=== PATIENT | female | born 2000 | race Caucasian/White ===

== ENCOUNTER 2019-09-24 17:12 | Emergency (ER) | payer BC, SELFPAY ==
[2018-08-04 15:13] VITALS: BMI 20.6
[2019-09-24 17:13] VITALS: BP 130/71; PULSE 231; RESP 147; TEMP 36.8; O2SAT 99; BMI 22.4
--- NOTE | 2019-09-24 17:19 | EKG12_ITS ---
Test Reason : SVT Blood Pressure : / mmHG Vent. Rate : 138 BPM Atrial Rate : 138 BPM P-R Int : 136 ms QRS Dur : 076 ms QT Int : 268 ms P-R-T Axes : 073 076 034 degrees QTc Int : 406 ms Sinus tachycardia Nonspecific ST abnormality Abnormal ECG Confirmed by ROSEANNE ALEXIS, BETTE ([id number]), writer editor OSVALDO WADE ([id number]) on 09/26/2019 3:45:13 PM Referred By: PATRICIA Confirmed By:BETTE CRONIN MD
--- NOTE | 2019-09-24 17:24 | ED.DCSUM_ITS ---
History of Present Illness Chief Complaint: Palpitations Informant: Patient, Family Narrative: 19-year-old female presenting with SVT. She states she had a history of this a few weeks ago when she was doing a tele-visit with her physician. Only lasted a few seconds. He stated that if it happened again she should come to the ER. She states he has been otherwise healthy she has been working out a lot. She does not feel like she is dehydrated she feels very well. Today she was at the gym and her heart rate started going to fast. She checked it and noted it to be over 200. She is not having any chest pain. She is not short of breath. Patient's only medication is oral control. No history of DVT/PE. Prior similar symptoms: Yes Past Medical History - Allergies and Home Meds Allergies/Adverse Reactions: Allergies penicillin G procaine Allergy (Mild, Verified 08/04/18 14:56) Nausea/Vom/Diarrhea GUARDISIL Adverse Reaction (Uncoded 09/24/19 17:15) PT UNSURE OF REACTION Primary Care Physician: Steven Toney MD [Primary Care Provider] - Prior records reviewed: Yes Past Medical History: - - SVT Lives: With Family Smoking Status: Never smoker Alcohol: None Drugs: None Review of Systems General: Denies: Chills, Fever Eyes: Denies: Visual changes - bilaterally, Diplopia ENT: Denies: Rhinorrhea, Sore throat Cardiovascular: Reports: Palpitations, Heart racing. Denies: Chest pain Respiratory: Denies: Dyspnea, Cough, Sputum Gastrointestinal: Denies: Abdominal pain Genitourinary: Denies: Dysuria Musculoskeletal: Denies: Myalgias, Arthralgias Skin: Denies: Rash Neurological: Denies: Headache Psych: Denies: Depression, Anxiety Physical Exam Vital Signs/Narrative: Vital Signs Temp Pulse Resp BP Pulse Ox 09/24/19 17:13 98.2 F 231 H 147 H 130/71 H 99 General: Well nourished, Well developed, No Acute Distress Head: Normocephalic, Atraumatic Eyes: Perrl, EOMI ENT: Moist mucous membranes, No rhinorrhea Neck: Supple, Nontender, No lymphadenopathy Cardiovascular: Tachycardia Respiratory: No distress, CTA bilaterally, Chest nontender Abdomen: Soft, Nontender Extremities: Nontender, No edema, Tenderness. Negative for: Edema, Calf Tenderness Skin: Normal color. Negative for: Cyanosis, Diaphoresis Neurological: Alert, Oriented x3 Psychological: Normal affect Diagnostic/Tx/Re-eval Chest X-Ray - ED: 1 View - Rhythm Strip Rate: 222 - SVT - EKG Follow-up EKG Interpretation: Sinus Tachycardia - Medical Decision Making Patient presented with SVT. I was able to do vagal maneuvers and her heart rate was then in the 130s. Her lab work is all normal. Troponin is negative. We did discuss whether we should do a d-dimer versus a CT of the chest given that she is on control. They did want to do a CTA. I did speak with her primary care provider regarding this and he was in agreement with this. We did perform a CTA which was negative. Her heart rate still remained between 115 and 120. As discussed with her primary care physician will start her on a low-dose of short acting metoprolol twice a day. She is going to follow-up with him Thursday and he will get her cardiology appointment. I did retirement plan counselor her that her blood pressure is normal at baseline so she starts to feel lightheaded that she should probably half her dose of metoprolol versus stopping it. If she has any concerns she should return immediately to the emergency room. Patient is stable for discharge at this time. ED Disposition - Plan for ED Patient: Disposition: Home or Assisted Living Diagnosis: SVT (supraventricular tachycardia) Instructions: ED Tachycardia PAT Prescriptions: Metoprolol Tartrate [Lopressor (beta sara)] 12.5 mg PO BID #30 tab Prescription Printed Referrals: Steven Toney MD [Primary Care Provider] -
--- NOTE | 2019-09-24 17:24 | EKG12_ITS ---
Test Reason : SVT Blood Pressure : / mmHG Vent. Rate : 222 BPM Atrial Rate : 250 BPM P-R Int : 000 ms QRS Dur : 100 ms QT Int : 200 ms P-R-T Axes : 000 065 -15 degrees QTc Int : 384 ms Supraventricular tachycardia Nonspecific ST abnormality Abnormal QRS-T angle, consider primary T wave abnormality Abnormal ECG Confirmed by ROSEANNE ALEXIS, BETTE ([id number]), manager editorial ERASMO ETIENNE ([id number]) on 09/26/2019 1:11:11 PM Referred By: PATRICIA Confirmed By:BETTE CRONIN MD
[2019-09-24 17:28] VITALS: BP 122/81; PULSE 124; RESP 23; O2SAT 99
[2019-09-24] MEDS: Aspirin 81 MG TAB.CHEW 324 MG PO (17:31)
[2019-09-24] MEDS: 0.9% Normal Saline 1,000 ML 1000 ML IV (17:33)
--- NOTE | 2019-09-24 17:37 | RAD_ITS ---
STUDY: X-RAY CHEST REASON FOR EXAM: Female, 19 years old. Patient felt as if heart was racing while working out. History of Supraventricular tachycardia episode prior. TECHNIQUE: AP portable COMPARISON: None. FINDINGS: The lungs are clear and expanded. There is no demonstrated pleural abnormality. Normal size heart. Normal mediastinum and varsha. Normal visualized pulmonary arteries. Normal visualized aortic arch and descending thoracic aorta. Normal visualized thoracic spine. Normal visualized ribs, clavicles, and shoulders. There is no demonstrated abnormality of the visualized soft tissue structures of the upper abdomen. RAD/Chest 1 View (Portable) IMPRESSION: Normal x-ray examination of the chest. Electronically Signed: Sharath Lang MD at 17:56 EDT , Service support ,
[2019-09-24 17:47] LABS: Absolute Lymphocyte Count 2.59 X10^3/uL (0.83-4.51); Absolute Neutrophil Count 4.8 X10^3/uL (2.0-7.7); Basophil# 0.05 X10^3/uL; Basophil% 0.6 % (0-1); Eosinophil# 0.11 X10^3/uL; Eosinophils% 1.3 % (0-5); Hematocrit 38.5 % (37-47); Hemoglobin 12.4 g/dL (12.0-15.0); Lymphocyte # 2.59 X10^3/ul (4.0); Mean Corp Hgb Conc 32.2 g/dL (32-36); Mean Corpuscular Hgb 28.8 pg (27.0-32.0); Mean Corpuscular Volume 89.3 fL (81-99); Mean Platelet Vol. 11.9 fl (6.2-12.0); Monocyte# 0.74 X10^3/uL; Monocyte% 8.9 % (0-10); NRBC Flagged by Analyzer 0 % (0-5); Neutrophil # 4.84 X10^3/uL (2.7-7.7); Platelet Count 225 K/mm3 (150-450); RBC Distribution Width CV 12.4 % (11.6-14.6); RBC Distribution Width SD 40.4 fl (35.1-43.9); Red Blood Count 4.31 M/mm3 (4.2-5.4); White Blood Count 8.4 K/mm3 (4.4-11.0)
[2019-09-24 17:53] LABS: Anion Gap 10 (5-15); BUN 10 mg/dL (7-18); BUN/Creat Ratio 11.8 RATIO (10-20); Calcium,Total 9.2 mg/dL (8.5-10.1); Chloride 104 mmol/L (98-107); Creatinine, Serum 0.85 mg/dL (0.55-1.02); EST Glomerular Filtration Rate 91 mL/min (>60); Est Glom Filt Rate - Afr Amer 110 mL/min (>60); Glucose 125 mg/dL (74-106); Magnesium 2.3 mg/dL (1.6-2.6); Potassium 3.4 mmol/L (3.5-5.1); Sodium Level 139 mmol/L (136-145)
[2019-09-24 18:49] VITALS: BP 121/88; PULSE 142; RESP 19; O2SAT 97
[2019-09-24 19:02] VITALS: BP 117/84; PULSE 134; RESP 16; O2SAT 98
--- NOTE | 2019-09-24 19:09 | CT_ITS ---
STUDY: CTA CHEST REASON FOR EXAM: Female, 19 years old. TACHYCARDIA RADIATION DOSAGE (If Supplied By Facility): CTDIvol = ( 4.095 ) mGy, DLP = ( 121.20 ) mGycm TECHNIQUE: The examination was performed with the intravenous administration of IV 100mL Isovue-370. Post-processing of the angiographic images was performed, with multiplanar reformation and 3D reconstruction. Individualized dose optimization techniques were used for this CT. COMPARISON: Chest radiograph September 24, 2019 FINDINGS: Normal enhancement of the main pulmonary artery and right and left pulmonary arteries. The interlobar, segmental, proximal and mid subsegmental vessels are well-opacified and there is no evidence for intraluminal clot. The more distal subsegmental vessels demonstrate linear filling defects due to motion artifact.. If strong clinical suspicion for pulmonary emboli recommend correlation with ventilation/perfusion scan of the lungs and Doppler sonogram of the venous system of lower extremities Normal thoracic aorta and visualized great vessels. There is no demonstrated aortic dissection. Normal heart and pericardium. Normal mediastinum. Normal hilar regions. Normal visualized trachea and bronchi. The lungs are well expanded. Normal pulmonary parenchyma. Normal pleura. Normal chest wall structures. Normal osseous structures. Normal visualized upper abdomen. CT/CTA Chest W/WO Contrast IMPRESSION: Normal CTA chest examination, . No definitive evidence for pulmonary embolus although there is limited study of the distal subsegmental vessels due to motion related artifact. If strong clinical suspicion for pulmonary embolus Doppler sonogram of the deep venous system of lower extremities and radionuclide perfusion ventilation scan of the lungs would be helpful for further assessment Electronically Signed: Sharath Lang MD at 20:37 EDT , Service support ,
[2019-09-24 20:00] VITALS: BP 120/87; PULSE 124; RESP 20; O2SAT 98
[2019-09-24] MEDS: Metoprolol Tartrate 25 MG Tablet 12.5 MG PO (21:21)
[2019-09-24 21:26] VITALS: BP 101/70; PULSE 128; RESP 18; O2SAT 98
== END 2019-09-24 21:26 | disposition home or self-care (01) ==
PROVIDERS: Emergency Provider Student in an Organized Health Care Education/Training Program; PCP Pediatrics
DX: I47.1 Supraventricular tachycardia (principal)
CPT/HCPCS: 71045; 71275; 80048; 83735; 84484; 85025; 93005; 96360; 99284; J7030; Q9967; A4216; J0153

== ENCOUNTER → 2019-11-02 | Outpatient (CLI) | payer BC, SELFPAY ==
[2019-11-02 15:06] VITALS: BMI 22.4
[2019-11-05 03:07] LABS: Chlamydia By Nucleic Acid AMP Negative (Negative)
[2019-11-05 07:31] LABS: Gonococcus By Nucleic Acid AMP Negative (Negative)
== END | disposition home or self-care (01) ==
LOC: LABSPEC 17:11
PROVIDERS: PCP Pediatrics; Referring Provider Nurse Practitioner Women's Health; Visit Provider Nurse Practitioner Women's Health
DX: Z11.3 Encounter for screening for infections with a predominantly sexual mode of transmission (principal)
CPT/HCPCS: 87491; 87591

== ENCOUNTER 2020-06-15 16:35 | Outpatient (RCR) | payer BC, SELFPAY ==
[2019-11-02 15:06] VITALS: BMI 22.4
== END 2020-08-21 23:59 ==
LOC: IMMUN 16:35
PROVIDERS: PCP Pediatrics; Visit Provider Family Medicine
DX: Z23 Encounter for immunization (principal)
CPT/HCPCS: 0001A; 0002A; 91300

== ENCOUNTER → 2020-12-05 11:24 | Outpatient (CLI) | payer BC, SELFPAY ==
[2020-12-07 22:05] LABS: HPV Reflexed? NOT INDICATED
== END ==
PROVIDERS: PCP Pediatrics; Referring Provider Obstetrics & Gynecology; Visit Provider Obstetrics & Gynecology
DX: Z12.4 Encounter for screening for malignant neoplasm of cervix (principal)
CPT/HCPCS: 88175; G0145

== ENCOUNTER → 2021-12-09 | Outpatient (CLI) | payer BC, SELFPAY ==
[2021-12-10 22:07] LABS: Chlamydia By Nucleic Acid AMP Negative (Negative)
[2021-12-11 09:31] LABS: Gonococcus By Nucleic Acid AMP Negative (Negative)
== END | disposition home or self-care (01) ==
LOC: LABSPEC 12-10 06:42
PROVIDERS: PCP Pediatrics; Visit Provider Obstetrics & Gynecology
DX: Z11.3 Encounter for screening for infections with a predominantly sexual mode of transmission (principal)
CPT/HCPCS: 87491; 87591

== ENCOUNTER → 2021-12-13 | Outpatient (CLI) | payer BC, SELFPAY ==
--- NOTE | 2021-12-13 18:25 | US_ITS ---
EXAM: US PELVIS TRANSABDOMINAL, COMPLETE CLINICAL INDICATION: MENORRHAGIA - FOR IUD PLACEMENT TECHNIQUE: Transabdominal pelvic ultrasound was performed with grayscale and color Doppler imaging. This report was created using [employer] report [employer] technology. COMPARISON: None. FINDINGS: UTERUS/CERVIX: The uterus measures 8.9 x 3.5 x 4.9 cm. The endometrium measures 7 mm. Anteverted. There is no uterine mass. RIGHT OVARY: The right ovary measures 2.3 x 1.5 x 1.4 cm. Blood flow is present in the right ovary. LEFT OVARY: The left ovary measures 2.6 x 1.5 x 1.9 cm. Blood flow is present in the left ovary. FREE FLUID: None. BLADDER: Unremarkable as visualized. Wall is normal thickness for degree of distention. US/Pelvic (Non ) IMPRESSION: No acute findings in the pelvis. Electronically Signed: Nikita Mota MD at 11:18 EDT ,
--- NOTE | 2021-12-13 18:26 | US_ITS ---
EXAM: US PELVIS TRANSABDOMINAL, COMPLETE CLINICAL INDICATION: MENORRHAGIA - FOR IUD PLACEMENT TECHNIQUE: Transabdominal pelvic ultrasound was performed with grayscale and color Doppler imaging. This report was created using [employer] report [employer] technology. COMPARISON: None. FINDINGS: UTERUS/CERVIX: The uterus measures 8.9 x 3.5 x 4.9 cm. The endometrium measures 7 mm. Anteverted. There is no uterine mass. RIGHT OVARY: The right ovary measures 2.3 x 1.5 x 1.4 cm. Blood flow is present in the right ovary. LEFT OVARY: The left ovary measures 2.6 x 1.5 x 1.9 cm. Blood flow is present in the left ovary. FREE FLUID: None. BLADDER: Unremarkable as visualized. Wall is normal thickness for degree of distention. US/Transvaginal Non- IMPRESSION: No acute findings in the pelvis. Electronically Signed: Nikita Mota MD at 11:18 EDT ,
== END | disposition home or self-care (01) ==
LOC: US 18:26
PROVIDERS: PCP Pediatrics; Referring Provider Obstetrics & Gynecology; Visit Provider Obstetrics & Gynecology
DX: N92.0 Excessive and frequent menstruation with regular cycle (principal)
CPT/HCPCS: 76830; 76856

== ENCOUNTER → 2024-03-04 | Outpatient (CLI) | payer OTHER, SELFPAY ==
[2024-03-14 09:49] LABS: HPV Reflexed? NOT INDICATED
== END | disposition home or self-care (01) ==
LOC: LABSPEC 09:55
PROVIDERS: PCP Pediatrics; Referring Provider Obstetrics & Gynecology; Visit Provider Obstetrics & Gynecology
DX: Z12.4 Encounter for screening for malignant neoplasm of cervix (principal)
CPT/HCPCS: 88175; G0145

== ENCOUNTER → 2025-03-08 | Outpatient (CLI) | payer OTHER, SELFPAY ==
--- OUTSIDE RECORDS SUMMARY | 2025-03-08 09:40 | XMS RPT_ITS | CCD ---
Author Organization [facility] Care Team Providers Care Voice Over Artist Name Role Phone [place] STORAGE BATTERY TESTER, Nai S Unavailable Feng ALEXIS, Maricel Wing Primary Care Provider Maricel Gonzalez MD Primary Care Provider Dr. Maricel Gonzalez Primary Care Provider Dr. Maricel Gonzalez Referring Provider Dr. Lakeisha Keane Attending Provider Maricel Gonzalez MD Primary Care Provider MARICEL GONZALEZ Primary Care Unavailable SILVESTRE SINGH Attending Unavailable Maricel Gonzalez MD Primary Care Provider Lakeisha Keane Attending UnavailMaricel Guerrero Referring Unavailable Maricel Gonzalez Primary Care Unavailable Maricel Gonzalez Primary Care Unavailable Lakeisha Keane Referring UnavailLakeisha Ramirez Attending Unavailabl e Aurora Roberts DO Primary Care Provider Fenohr PACKAGING SPECIALIST.GUEST SERVICES OFFICER, Breanne Unavailable [phone] AURORA ROBERTS Attending Unavailable SELF Referring Unavailable AURORA ROBERTS Referring Unavailable AURORA ROBERTS Primary Care Unavailable Fenohr PACKAGING SPECIALIST.GUEST SERVICES OFFICER, Breanne Unavailable Allergies Allergy Classification Reported Allergen(s) Allergy Type Date of Onset Reaction(s) Facility (15 sources) L1 protein, Human papillomavirus type 11 Vaccine / L1 protein, Human papillomavirus type 16 Vaccine / L1 protein, Human papillomavirus type 18 Vaccine / L1 protein, Human papillomavirus type 31 Vaccine / L1 protein, Human papillomavirus type 33 Vaccine / L1 protein, Human papillomavirus type 45 Vaccine / L1 protein, Human papillomavirus type 52 Vaccine / L1 protein, Human papillomavirus type 58 Vaccine / L1 protein, Human papillomavirus type 6 Vaccine; Translations: [HUMAN PAPILLOMAV VAC,9-DEMETRIO(PF)] Drug Allergy 11-11-[address] [facility] (1 source) Penicillin G Drug Allergy 12-10-19 22 Nausea/Vom/Josette rrhea [facility] Work Phone: (1 source) GUARDISIL Propensity to adverse reactions 12-06-19 21 PT UNSURE OF REACTION [facility] Work Phone: (6 sources) Penicillins; Translations: [PENICILLINS] Drug Allergy 09-11-[address] [facility] (1 source) Penicillin Drug Allergy 03-04-20 24 [facility] Repository (1 source) human papillomavirus vaccine, quadr Drug allergy (disorder) 03-04-20 24 [facility] Repository (2 sources) Penicillins Drug Allergy 09-11-[address] [facility] Medications Current Medications Medication Drug Class(es) Dates Sig (Normalized) Sig (Original) clindamycin 10 mg/ml topical lotion (2 sources) Lincosamide Antibacterial Start: 10-01-2022 Clindamycin Phosphate (CLEOCIN T) 1 % lotion PLEASE SEE ATTACHED FOR DETAILED DIRECTIONS 10/01/2022 Active doxycycline hyclate 100 mg oral capsule (1 source) Tetracycline-class Drug Start: 09-10-2022 End: 09-20-2022 take 1 capsule by mouth twice daily doxycycline hyclate (VIBRAMYCIN) 100 mg capsule Take 1 capsule by mouth twice daily for 10 days. 20 capsule 0 09/10/2022 09/20/2022 Active Comment on above: Take 1 capsule by [facility] twice daily for 10 days. Drospirenone-Ethin yl Estradiol (20 sources) Progestin, Estrogen Start: 12-16-2021 Drospirenone-Ethi nyl Estradiol (Ocella) 3-0.03 mg tablet Active 1 TABLET PO .COMPLEX December 16, 2021 9:02am 1 tab PO active pills for continuous cycling; Start: 12-05-2020 End: 12-16-2021 Drospirenone-Ethinyl Estradi ol (Ocella) 3-0.03 mg tablet Discontinued 1 TABLET PO .COMPLEX December 05, 2020 9:42am December 16, 2021 9:02am 1 tab PO active pills for continuous cycling; Start: 11-13-2020 End: 12-05-2020 Drospirenone-Ethinyl Estradi ol (Ocella) 3-0.03 mg tablet Discontinued 1 TABLET PO .COMPLEX 84 November 13, 2020 8:40am December 05, 2020 9:42am 1 tab PO active pills for continuous cycling; Start: 08-16-2019 End: 11-13-2020 Drospirenone-Ethinyl Estradi ol (Ocella) 3-0.03 mg tablet Discontinued 1 TABLET PO .COMPLEX 84 November 02, 2019 3:06pm November 13, 2020 8:40am 1 tab PO active pills for continuous cycling; Start: 08-04-2018 End: 08-16-2019 Drospirenone-Ethinyl Estradi ol (Ocella) 3-0.03 mg tablet Discontinued 1 TABLET PO .COMPLEX August 04, 2018 3:13pm August 16, 2019 11:30am 1 tab PO active pills for continuous cycling; Start: 12-22-2017 End: 08-04-2018 Drospirenone-Ethinyl Estradi ol (Ocella) 3-0.03 mg tablet Discontinued 1 TABLET PO .COMPLEX December 22, 2017 12:00am August 04, 2018 3:13pm 1 tab PO active pills for continuous cycling; Start: 06-29-2017 End: 12-22-2017 Drospirenone-Ethinyl Estradi ol (Misael (28)) 3-0.02 mg tablet Discontinued 1 TABLET PO .COMPLEX June 29, 2017 1:30pm December 22, 2017 2:50pm 1 tab PO daily continuous cycling for 3 cycles Start: 06-01-2017 End: 06-29-2017 Drospirenone-Ethinyl Estradi ol (Misael (28)) 3-0.02 mg tablet Discontinued 1 TABLET PO daily June 01, 2017 12:00am June 29, 2017 1:31pm Start: 10-20-2016 take 1 tablet by patrica th once daily MISAEL 3-0.02 MG TABS One tablet by mouth daily DROSPIRENONE-ETHINYL ESTRADIOL [id number] Nai Rangel NP Start: 05-14-2016 End: 06-22-2024 Drospirenone-Ethinyl Estradi ol (MISAEL, 28,) 3-0.02 mg per tablet Take continuous for 12 weeks 3 Package 2 05/14/2016 06/22/2024 Discontinued Start: 05-14-2016 Drospirenone-E thinyl Estradiol (MISAEL, 28,) 3-0.02 mg per tablet Take continuous for 12 weeks 3 Package 2 05/14/2016 Active Comment on above: Take continuous for 12 weeks nitrofurantoin, macrocrystals 25 mg / nitrofurantoin, monohydrate 75 mg oral capsule (1 source) Nitrofuran Antibacterial Start: End: 023 take 1 capsule by mouth twice daily nitrofurantoin monohydrate and macrocrystal (MACROBID) 100 mg capsule Indications: Dysuria Take 1 capsule by mouth twice daily for 7 days. 14 capsule 0 07/10/2022 07/17/2022 Active Comment on above: Take 1 capsule by [facility] twice daily for 7 days. spironolactone 25 mg oral tablet (2 sources) Aldosterone Antagonist Start: 024 spironolactone (ALDACTONE) 25 mg tablet 06/15/2023 Active SPIRONOLACTONE-NIACINA MIDE TOPICAL (2 sources) Start: 025 SPIRONOLACTONE-NIACIN AMIDE TOPICAL Apply a thin layer to the face twice a day 05/27/2024 Active tretinoin 0.25 mg/ml topical cream (2 sources) Retinoid Start: 023 tretinoin (RETIN-A) 0.025 % topical cream Using 0.1 10/01/2022 Active Completed/Discontinued Medications Medication Drug Class(es) Dates Sig (Normalized) Sig (Original) azelastine hydrochloride 0.5 mg/ml ophthalmic solution (12 sources) Histamine-1 Receptor Antagonist Start: 08-17-2019 End: 06-22-2024 take 1 drop(s) into the eye(s) twice daily as needed, then take 1 drop(s) into the eye(s) every twelve hours as needed Azelastine HCl (OPTIVAR) 0.05 % ophthalmic solution Indications: Other chronic allergic conjunctivitis of both eyes Use 1 Drop in both eyes twice daily as needed (Eye pruritus). ONE DROP TO THE AFFECTED EYE EVERY 12 HOURS PRN PRURITIS 1 Bottle 4 08/17/2019 06/22/2024 Discontinued Start: 08-17-2019 take 1 drop(s) into the eye(s) twice daily as needed, then take 1 drop(s) into the eye(s) every twelve hours as needed Azelastine HCl (OPTIVAR) 0.05 % ophthalmic solution Indications: Other chronic allergic conjunctivitis of both eyes Use 1 Drop in both eyes twice daily as needed (Eye pruritus). ONE DROP TO THE AFFECTED EYE EVERY 12 HOURS PRN PRURITIS 1 Bottle 4 08/17/2019 Active Comment on above: Use 1 Drop in both e yes twice daily as needed (Eye pruritus). ONE DROP TO THE AFFECTED EYE EVERY 12 HOURS PRN PRURITIS fluconazole 150 mg oral tablet (2 sources) Azole Antifungal Start: 7 FLUCONAZOLE 150 MG TABS 1 tab po today and repeat 3 days FLUCONAZOLE [id number] Nai Rangel STORAGE BATTERY TESTER metoprolol tartrate 25 mg oral tablet (1 source) beta-Adrenergic Cedrick Start: 0 End: 0 take 12.5 mg by mouth twice daily Metoprolol Tartrate Discontinued 12.5 MG PO TWICE A DAY September 24, 2019 12:00am November 02, 2019 3:00pm Problems Active Problems Problem Classification Problem Date Documented Date Episodic/Chronic Administrative/socia l admission (1 source) First encounter by subject; Translations: [Persons encountering health services in other specified circumstances] 06-22-2024 Episodic Cardiac dysrhythmias (14 sources) Supraventricular tachycardia; Translations: [Supraventricular tachycardia] Onset: 09-28-2019 12-14-2019 Chronic Cardiac dysrhythmias (4 sources) Tachycardia; Translations: [Tachycardia, unspecified] Onset: 09-10-2022 Episodic Genitourinary symptoms and ill-defined conditions (1 source) Dysuria; Translations: [Dysuria] Episodic Immunizations and screening for infectious disease (7 sources) Tuberculosis screening status; Translations: [Encounter for screening for respiratory tuberculosis] Episodic Menstrual disorders (16 sources) Menorrhagia; Translations: [Menometrorrhagia] Onset: 07-30-2015 10-20-2016 Chronic Other circulatory disease (1 source) History of supraventricular tachycardia; Translations: [Personal history of other diseases of the circulatory system] 06-22-2024 Episodic Other lower respiratory disease (1 source) Cough; Translations: [Acute cough] Episodic Other non-traumatic joint disorders (2 sources) Acute ankle pain; Translations: [Pain in right ankle and joints of right foot] 10-01-2022 Episodic Other screening for suspected conditions (not mental disorders or infectious disease) (2 sources) Encounter for screening for malignant neoplasm of cervix; Translations: [Cancer cervix screening status] Onset: 04-06-2024 06-22-2024 Episodic Other upper respiratory infections (2 sources) Acute frontal sinusitis; Translations: [Acute frontal sinusitis, unspecified] Onset: 09-10-2022 Episodic Residual codes; unclassified (1 source) Treatment not available; Translations: [Procedure and treatment not carried out for other reasons] 12-18-2022 Episodic Unclassified (1 source) Acute cough; Translations: [Acute cough] Onset: 09-10-2022 Past or Other Problems Problem Classification Problem Date Documented Da te Episodic/Chronic E Codes: Adverse effects of medical drugs (13 sources) Vaccines adverse reaction; Translations: [Adverse effect of other vaccines and biological substances, initial encounter] Onset: 10-22-2015 2021 Episodic Mycoses (2 sources) Candidiasis of vagina; Translations: [Candidiasis of vulva and vagina] Onset: 10-20-2016 10-20-2016 Episodic Other non-traumatic joint disorders (13 sources) Ankle pain; Translations: [Pain in right ankle and joints of right foot] Onset: 07-05-2012 07-05-2012 Episodic Results Test Name Value Interpretation Reference Range Facility BLOOD TB SCREENon 07-18-2024 M. tuberculosis tuberculin stim IFN-g Ql (Bld) Negative Normal [facility] Comment on above: Order Comment: Speci men Type: BLOOD SPECIMEN Ordering Facility: [facility] Address: [address] [place] [address] Performed By: #### I NFTBP #### [facility] CLIA [id number] [address] [place] [address] [place] [address] [place] MITOGEN MINUS NIL >9.98 Normal >=0.50 [facility] Comment on above: Order Comment: Speci men Type: BLOOD SPECIMEN Ordering Facility: [facility] Address: [address] [place] [address] Performed By: #### I NFTBP #### [facility] CLIA [id number] [address] [place] [address] [place] TB GAMMA INTERPRETATION Infection with M. tuberculosis complex is unlikely. If latent tuberculosis infection is highly suspected, a negative result does not rule out the infection. Specimens from immunocompromised patients and those <5 years of age may show false negative results. In case of a contact investigation, please repeat 8-12 weeks after a known exposure. Normal [facility] Comment on above: Order Comment: Jaswanti elan Type: BLOOD SPECIMEN Ordering Facility: [facility] Address: [address] [place] [address] Performed By: #### I NFTBP #### [facility] CLIA [id number] [address] [place] [address] [place] TB NIL 0.02 IU/mL Normal <=8.00 [facility] Comment on above: Order Comment: Speci men Type: BLOOD SPECIMEN Ordering Facility: [facility] Address: [address] [place] [address] Performed By: #### I NFTBP #### [facility] CLIA [id number] [address] [place] [address] [place] TB1 AG MINUS NIL 0.00 IU/mL Normal <0.35 [facility] Comment on above: Order Comment: Speci men Type: BLOOD SPECIMEN Ordering Facility: [facility] Address: [address] [place] [address] Performed By: #### I NFTBP #### [facility] CLIA [id number] [address] [place] [address] [place] TB2 AG MINUS NIL <0.00 Normal <0.35 [facility] Comment on above: Order Comment: Speci men Type: BLOOD SPECIMEN Ordering Facility: [facility] Address: [address] [place] [address] Performed By: #### I NFTBP #### [facility] CLIA [id number] [address] [place] [address] [place] CBC panel Auto (Bld)on 07-18 Erythrocyte distribution width (RBC) [Ratio] 12.2 % Normal 11.5-15.0 [facility] Comment on above: Order Comment: Speci men Type: BLOOD SPECIMEN Ordering Facility: [facility] Address: [address] [place] [address] Performed By: #### 5 8410-2 #### [facility] CLIA [id number] [address] [place] [address] [place] Hematocrit (Bld) [Volume fraction] 40.4 % Normal 36.0-46.0 [facility] Comment on above: Order Comment: Speci men Type: BLOOD SPECIMEN Ordering Facility: [facility] Address: [address] [place] [address] Performed By: #### 5 8410-2 #### [facility] CLIA [id number] [address] [place] [address] [place] Hemoglobin (Bld) [Mass/Vol] 13.8 g/dL Normal 11.5-15.5 [facility] Comment on above: Order Comment: Speci men Type: BLOOD SPECIMEN Ordering Facility: [facility] Address: [address] [place] [address] Performed By: #### 5 8410-2 #### [facility] CLIA [id number] [address] [place] [address] [place] MCH (RBC) [Entitic mass] 29.4 pg Normal 26.0-34.0 [facility] Comment on above: Order Comment: Speci men Type: BLOOD SPECIMEN Ordering Facility: [facility] Address: [address] [place] [address] Performed By: #### 5 8410-2 #### [facility] CLIA [id number] [address] [place] [address] [place] MCHC (RBC) [Mass/Vol] 34.2 g/dL Normal 30.5-36.0 [facility] Comment on above: Order Comment: Speci men Type: BLOOD SPECIMEN Ordering Facility: [facility] Address: [address] [place] [address] Performed By: #### 5 8410-2 #### [facility] CLIA [id number] [address] [place] [address] [place] MCV (RBC) [Entitic vol] 86.0 fL Normal 80.0-100.0 [facility] Comment on above: Order Comment: Speci men Type: BLOOD SPECIMEN Ordering Facility: [facility] Address: [address] [place] [address] Performed By: #### 5 8410-2 #### [facility] CLIA [id number] [address] [place] [address] [place] Nucleated RBC (Bld) [#/Vol] 10*3/uL Normal <0.01 [facility] Comment on above: Order Comment: Speci men Type: BLOOD SPECIMEN Ordering Facility: [facility] Address: [address] [place] [address] Performed By: #### 5 8410-2 #### [facility] CLIA [id number] [address] [place] [address] [place] Platelet mean volume (Bld) [Entitic vol] 11.3 fL Normal 9.0-12.7 [facility] Comment on above: Order Comment: Speci men Type: BLOOD SPECIMEN Ordering Facility: [facility] Address: [address] [place] [address] Performed By: #### 5 8410-2 #### [facility] CLIA [id number] [address] [place] [address] [place] Platelets (Bld) [#/Vol] 220 10*3/uL Normal 150-400 [facility] Comment on above: Order Comment: Speci men Type: BLOOD SPECIMEN Ordering Facility: [facility] Address: [address] [place], [place] [id number] Performed By: #### 5 8410-2 #### [facility] CLIA [id number] [address] [place] [address] [place] RBC (Bld) [#/Vol] 4.70 10*6/uL Normal 3.90-5.20 [facility] Comment on above: Order Comment: Speci men Type: BLOOD SPECIMEN Ordering Facility: [facility] Address: [address] [place] [address] Performed By: #### 5 8410-2 #### [facility] CLIA [id number] [place] [address] [place] WBC (Bld) [#/Vol] 7.56 10*3/uL Normal 3.70-11.00 [facility] Comment on above: Order Comment: Speci men Type: BLOOD SPECIMEN Ordering Facility: [facility] Address: [address] [place] [address] Performed By: #### 5 8410-2 #### [facility] CLIA [id number] [address] [place] [address] [place] Comprehensive metabolic 2000 panelon 07-18-2024 Albumin [Mass/Vol] 4.8 g/dL Normal 3.9-4.9 [facility] Comment on above: Order Comment: Speci men Type: BLOOD SPECIMEN Ordering Facility: [facility] Address: [address] [place] [address] Performed By: #### 2 4323-8 #### [facility] CLIA [id number] [address] [place] [address] [place] ALP [Catalytic activity/Vol] 61 U/L Normal 34-123 [facility] Comment on above: Order Comment: Speci men Type: BLOOD SPECIMEN Ordering Facility: [facility] Address: [address] [place] [address] Performed By: #### 2 4323-8 #### [facility] CLIA [id number] [address] [id number] [address] [place] ALT [Catalytic activity/Vol] 16 U/L Normal 7-38 [facility] Comment on above: Order Comment: Speci men Type: BLOOD SPECIMEN Ordering Facility: [facility] Address: [address] [place] [address] Performed By: #### 2 4323-8 #### [facility] CLIA [id number] [address] [place] [address] [place] Anion gap [Moles/Vol] 11 mmol/L Normal 8-15 [facility] Comment on above: Order Comment: Speci men Type: BLOOD SPECIMEN Ordering Facility: [facility] Address: [address] [place] [address] Performed By: #### 2 4323-8 #### [facility] CLIA [id number] [address] [place] [address] [place] AST [Catalytic activity/Vol] 25 U/L Normal 13-35 [facility] Comment on above: Order Comment: Speci men Type: BLOOD SPECIMEN Ordering Facility: [facility] Address: [address] [place] [address] Performed By: #### 2 4323-8 #### [facility] CLIA [id number] [address] [place] [address] [place] Bilirubin [Mass/Vol] 0.4 mg/dL Normal 0.2-1.3 [facility] Comment on above: Order Comment: Speci men Type: BLOOD SPECIMEN Ordering Facility: [facility] Address: [address] [place] [address] Performed By: #### 2 4323-8 #### [facility] CLIA [id number] [address] [place] [address] [place] Calcium [Mass/Vol] 10.1 mg/dL Normal 8.5-10.2 [facility] Comment on above: Order Comment: Speci men Type: BLOOD SPECIMEN Ordering Facility: [facility] Address: [address] [place] [address] Performed By: #### 2 4323-8 #### [facility] CLIA [id number] [address] [place] [address] [place] Chloride [Moles/Vol] 104 mmol/L Normal 98-107 [facility] Comment on above: Order Comment: Speci men Type: BLOOD SPECIMEN Ordering Facility: [facility] Address: [address] [place] [address] Performed By: #### 2 4323-8 #### [facility] CLIA [id number] [address] [place] [address] [place] CO2 [Moles/Vol] 23 mmol/L Normal 22-30 [facility] Comment on above: Order Comment: Speci men Type: BLOOD SPECIMEN Ordering Facility: [facility] Address: [address] [place] [address] Performed By: #### 2 4323-8 #### [facility] CLIA [id number] [address] [place] [address] [place] Creatinine [Mass/Vol] 0.73 mg/dL Normal 0.58-0.96 [facility] Comment on above: Order Comment: Speci men Type: BLOOD SPECIMEN Ordering Facility: [facility] Address: [address] [place] [address] Performed By: #### 2 4323-8 #### [facility] CLIA [id number] [address] [place] [address] [place] Creatinine and Glomerular filtration rate.predicted panel (S/P/Bld) 117 mL/min/1.73m??? Normal >=60 [facility] Comment on above: Order Comment: Speci men Type: BLOOD SPECIMEN Ordering Facility: [facility] Address: [address] [place] [address] Result Comment: Sandra mated Glomerular Filtration Rate (eGFR) is calculated using the 2020 CKD-EPI creatinine equation. This equation utilizes serum creatinine, sex, and age as parameters. The creatinine assay has traceable calibration to isotope dilution-mass spectrometry. Refer to KDIGO guidelines for clinical interpretation. In patients with unstable renal function, e.g. those with acute kidney injury, the eGFR may not accurately reflect actual GFR. Performed By: #### 2 4323-8 #### [facility] CLIA [id number] [address] [place], [place] [id number] [place] Glucose [Mass/Vol] 86 mg/dL Normal 74-99 [facility] Comment on above: Order Comment: Syd ansari Type: BLOOD SPECIMEN Ordering Facility: [facility] Address: [address] [place] [address] Result Comment: The [place] [employer] Association (ADA) provides guidance for cutoff values for fasting glucose and random glucose. The ADA defines fasting as no caloric intake for at least 8 hours. Fasting plasma glucose results between 100 to 125 mg/dL indicate increased risk for diabetes (prediabetes). Fasting plasma glucose results greater than or equal to 126 mg/dL meet the criteria for diagnosis of diabetes. In the absence of unequivocal hyperglycemia, results should be confirmed by repeat testing. In a patient with classic symptoms of hyperglycemia or hyperglycemic crisis, random plasma glucose results greater than or equal to 200 mg/dL meet the criteria for diagnosis of diabetes. Reference: Standards of Medical Care in Diabetes 2016, [place] [employer]. Diabetes Care. 2016.39(Suppl 1). Performed By: #### 2 4323-8 #### [facility] CLIA [id number] [address] [place], [place] [address] [place] Potassium [Moles/Vol] 4.4 mmol/L Normal 3.7-5.1 [facility] Comment on above: Order Comment: Syd ansari Type: BLOOD SPECIMEN Ordering Facility: [facility] [facility] Address: [address] [place], [place] [id number] Performed By: #### 2 4323-8 #### [facility] CLIA [id number] [address] [place] [address] [place] Protein [Mass/Vol] 7.7 g/dL Normal 6.3-8.0 [facility] Comment on above: Order Comment: Syd ansari Type: BLOOD SPECIMEN Ordering Facility: [facility] Address: [address] [place] [address] Performed By: #### 2 4323-8 #### [facility] CLIA [id number] [address] [place] [address] [place] Sodium [Moles/Vol] 138 mmol/L Normal 136-144 [facility] Comment on above: Order Comment: Speci men Type: BLOOD SPECIMEN Ordering Facility: [facility] Address: [address] [place] [address] Performed By: #### 2 4323-8 #### [facility] CLIA [id number] [address] [place] [address] [place] Urea nitrogen [Mass/Vol] 10 mg/dL Normal 7-21 [facility] Comment on above: Order Comment: Speci men Type: BLOOD SPECIMEN Ordering Facility: [facility] Address: [address] [place] [address] Performed By: #### 2 4323-8 #### [facility] CLIA [id number] [address] [place] [address] [place] HbA1c (Bld)on 07-18-2024 Average glucose Estimated from glycated hemoglobin (Bld) [Mass/Vol] 94 mg/dL Normal [facility] Comment on above: Order Comment: Speci men Type: BLOOD SPECIMEN Ordering Facility: [facility] Address: [address] [place] [address] Result Comment: eAG: (Estimated average glucose) is a calculated value from HgbA1c and is traveling representative of the average blood glucose level in the last 2-3 month period. Performed By: #### 5 5454-3 #### [facility] CLIA [id number] [address] [place] [address] [place] HbA1c (Bld) [Mass fraction] 4.9 % Normal 4.3-5.6 [facility] Comment on above: Order Comment: Speci men Type: BLOOD SPECIMEN Ordering Facility: [facility] Address: [address] [place] [address] Result Comment: Amer ican Diabetes Association guidelines indicate that patients with HgbA1c in the range 5.7-6.4% are at increased risk for development of diabetes, and intervention by lifestyle modification may be beneficial. HgbA1c greater or equal to 6.5% is considered diagnostic of diabetes. Performed By: #### 5 5454-3 #### [facility] CLIA [id number] [address] [place] [address] Lipid 1996 panelon 5 Cholesterol [Mass/Vol] 181 mg/dL Normal <200 [facility] Comment on above: Order Comment: Speci men Type: BLOOD SPECIMEN Ordering Facility: [facility] Address: [address] [place] [address] Result Comment: <200 mg/dL, Desirable 200-239 mg/dL, Borderline high >239 mg/dL, High Performed By: #### 2 4331-1 #### [facility] CLIA [id number] [address] [place] [address] LAB CLIA [id number] [place] [address] [place] Cholesterol in HDL [Mass/Vol] 65 mg/dL Normal >39 [facility] Comment on above: Order Comment: Jaswanti men Type: BLOOD SPECIMEN Ordering Facility: [facility] Address: [address] [place] [address] Result Comment: 40-5 9 mg/dL, Acceptable >59 mg/dL, High: Negative risk factor for coronary heart disease <40 mg/dL, Low: Positive risk factor for coronary heart disease Performed By: #### 2 4331-1 #### [facility] CLIA [id number] [address] [place] [address] LAB CLIA [id number] [place] [address] [place] Cholesterol in LDL [Mass/Vol] 109 mg/dL High <100 [facility] Comment on above: Order Comment: Speci men Type: BLOOD SPECIMEN Ordering Facility: [facility] Address: [address] [place] [address] Result Comment: <100 mg/dL, Optimal 100-129 mg/dL, Near optimal/above optimal 130-159 mg/dL, Borderline high 160-189 mg/dL, High >189 mg/dL, Very high Secondary prevention optimal LDL Cholesterol levels are recommended to be <70 mg/dL LDL cholesterol is calculated using the Brothers-NIH equation. Performed By: #### 2 4331-1 #### [facility] CLIA [id number] [address] [place] [address] LAB CLIA [id number] [address] [place] [address] [place] Cholesterol in LDL/Cholesterol in HDL [Mass ratio] 1.68 {ratio} Normal <2.54 [facility] Comment on above: Order Comment: Syd ansari Type: BLOOD SPECIMEN Ordering Facility: [facility] Address: [address] [place] [address] Result Comment: Refe rence: 1. National Cholesterol Education Program ATP III Guideline At-A-Glance Quick Desk Reference: National Heart, Lung, and Blood [place]. National Institutes of Health. 2001: NIH Publication No. 01-3305. 2. An International Atherosclerosis Society position paper: global recommendations for the management of dyslipidemia: executive summary, Atherosclerosis. 2014: 232(2):410-413. Performed By: #### 2 4331-1 #### [facility] CLIA [id number] [address] [place] [address] LAB CLIA [id number] [address] [place] [address] [place] Cholesterol in VLDL [Mass/Vol] 6 mg/dL Normal <30 [facility] Comment on above: Order Comment: Syd ansari Type: BLOOD SPECIMEN Ordering Facility: [facility] Address: [address] [place] [address] Performed By: #### 2 4331-1 #### [facility] CLIA [id number] [address] LAB CLIA [id number] [address] [place] [address] [place] Cholesterol non HDL [Mass/Vol] 116 mg/dL Normal <130 [facility] Comment on above: Order Comment: Speci men Type: BLOOD SPECIMEN Ordering Facility: [facility] Address: [address] [place] [address] Result Comment: <130 mg/dL, Optimal 130-159 mg/dL, Near optimal/above optimal 160-189 mg/dL, Borderline high 190-219 mg/dL, High >219 mg/dL, Very high Secondary prevention optimal non HDL Cholesterol levels are recommended to be <100 mg/dL Performed By: #### 2 4331-1 #### [facility] CLIA [id number] [address] [place] [address] LAB CLIA [id number] [address] [place] [address] [place] Cholesterol.total /Cholesterol in HDL [Mass ratio] 2.78 {ratio} Normal <5.10 [facility] Comment on above: Order Comment: Speci men Type: BLOOD SPECIMEN Ordering Facility: [facility] Address: [address] [place] [address] Performed By: #### 2 4331-1 #### [facility] CLIA [id number] [address] [place] [address] OF [facility] CLIA [id number] [address] [place] [address] [place] FASTING TIME 12 hrs Normal [facility] Comment on above: Order Comment: Speci men Type: BLOOD SPECIMEN Ordering Facility: [facility] Address: [address] [place] [address] Performed By: #### 2 4331-1 #### [facility] CLIA [id number] [address] [place] [address] OF [facility] CLIA [id number] [address] [place] [address] [place] Triglyceride [Mass/Vol] 34 mg/dL Normal <150 [facility] Comment on above: Order Comment: Speci men Type: BLOOD SPECIMEN Ordering Facility: [facility] Address: [address] [place] [address] Result Comment: <150 mg/dL, Normal 150-199 mg/dL, Borderline high 200-499 mg/dL, High >499 mg/dL, Very high Performed By: #### 2 4331-1 #### [facility] CLIA [id number] [address] [place] [address] [facility] CLIA [id number] [place] [address] CNOVon 06-22-2024 CNOV Office Visit ([facility] ) NALDOJOHAN Grant ([id number]) 2000 F Date Time Provider Department 06/22/24 11:20 AM [facility] During your visit today, we recorded the following information about you: Pulse Respiration Blood pressure Weight 150/minute 16/minute 125/70 58.1 kg Aurora Roberts DO 06/22/2024 2:01 PM Signed PRIMARY CARE OFFICE VISIT June 22, 2024 History: Johan is a 24-year-old female presenting for an initial visit to [facility]. Initial Visit: - Last seen by a ambulette driver; no PCP since. - No current health concerns. - Recent Pap smear in February 2024; no history of abnormal results. - Received two doses of Gardasil at ages 14-15; experienced severe nausea, emesis, and visual disturbances post-vaccination. - Family history of lung cancer in grandfather. - Denies tobacco or alcohol use. 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 - Asks about vitamin recommendations. SVT: - History of SVT with ablation in 2019; no recurrence since. - Denies current medication use for SVT. - Reports tachycardia during medical appointments, but normal heart rate otherwise. Acne: - Taking spironolactone for acne management. - Uses topical treatments. ROS: (No current symptoms explicitly mentioned in the transcript. No ROS items to list.) The patient consented to the use of [employer] software for draft documentation of the visit consistent with [facility]?s Notice of Privacy Practices. Physical exam: BP 125/70 Pulse (!) 150 Resp 16 Wt 58.1 kg (128 lb) LMP 07/29/2021 BMI 22.18 kg/m? General: no acute distress, conversant Eyes: conjunctivae clear Pulm: respirations are even and unlabored CV: vitals as above, extremities well perfused Abdomen: non-distended Neuro: alert, oriented, and moving all four limbs Psych: appropriate mood and affect Skin: warm and dry Assessment AND Plan: 1. Encounter to establish care (Z76.89) 2. Preventative health care (Z00.00) 3. Adult wellness visit (Z00.00) - Established care as a new patient. - Discussed the importance of regular health screenings and preventative care. - Ordered comprehensive lab work including lipid panel, CMP, CBC, and HbA1c. - Labs to be drawn in July; patient advised to fast prior to the appointment. - Ordered TB blood test to be completed after July 14 as required for school. - Discussed vitamin supplementation; advised that a multivitamin is generally safe and excess will be excreted by the body. - Patient to schedule a follow-up visit in one year. 4. Personal history of supraventricular tachycardia (Z86.79) - History of SVT with successful ablation in 2019; no recurrence since the procedure. - No current medications for SVT. - Tachycardia noted during the visit, likely due to situational anxiety; patient reports normal heart rate outside of clinical settings. - Continue current management; no further intervention required at this time. 5. Screening for cervical cancer (Z12.4) - Recent Pap smear performed in February 2024 with normal results. - Discussed HPV vaccination history; patient received two doses of Gardasil but experienced significant adverse reactions. - Advised that two doses are generally sufficient, especially given the adverse reaction to the third dose. - Next Pap smear due in February 2027. Aurora Roberts DO Internal Medicine Medical Billing Statement [id number] This visit should be coded by complexity; MDM was of low complexity. OVERALL COMPLEXITY Problem Complexity: Low Data Level: Low Risk Level: Straightforward Overall MDM complexity (2/3 must be met or exceeded): Low PROBLEMS SECTION: 1. Personal history of supraventricular tachycardia - Stable, Chronic Illness One stable chronic illness (Low complexity) Problem complexity level: Low DATA SECTION: - Review of prior external note(s) from each unique source: - Review of the result(s) of each unique test: - Ordering of each unique test: lipid panel; CMP; CBC; HbA1c; TB blood test - 5 unique tests ordered - Assessment requiring an independent historian(s): - Independent interpretation of a test performed by another physician/other qualified health post acute care registered nurse: - Discussion of management or test interpretation with external physician/other qualified health post acute care registered nurse/appropriate source: Data complexity level: Limited; meets the requirements of at least 1 out of 2 categories RISKS SECTION: Comprehensive lab work (lipid panel, CMP, CBC, HbA1c, TB blood test) - Minimal complexity Vitamin supplementation (multivitamin) - Minimal complexity Risks complexity level (highest from above): Minimal 06/22/2024 Referring Provider: SELF (more content not included)... Normal [facility] PAP I-G w/rfx hrHPV-Aptimaon 03-14-2024 ADEQ Comment Normal . [facility] Comment on above: Order Comment: Syd ansari Comment: [id number] Specimen Comment: No. of containers..01 ThinPrep Vial Result Comment: Sati sfactory for evaluation. No endocervical component is identified. Performed By: #### L 7400.0353 #### [facility] [address] [place], [place], [id number] COMM . Normal . [facility] Comment on above: Order Comment: Syd ansari Comment: [id number] Specimen Comment: No. of containers..01 ThinPrep Vial Performed By: #### L 7400.0353 #### [facility] [address] [place], [address] COMMENT Comment Normal . [facility] Comment on above: Order Comment: Speci men Comment: [id number] Specimen Comment: No. of containers..01 ThinPrep Vial Result Comment: This liquid based ThinPrep(R) pap test was screened with the use of an image guided system. Performed By: #### L 7400.0353 #### [facility] [address] [place], [address] DIAG Comment Normal . [facility] Comment on above: Order Comment: Speci men Comment: [id number] Specimen Comment: No. of containers..01 ThinPrep Vial Result Comment: NEGA TIVE FOR INTRAEPITHELIAL LESION OR MALIGNANCY. Performed By: #### L 7400.0353 #### [facility] [address] [place], [address] HPV RFLX Comment Normal . [facility] Comment on above: Order Comment: Speci men Comment: [id number] Specimen Comment: No. of containers..01 ThinPrep Vial Result Comment: The HPV DNA reflex criteria were not met with this specimen result therefore, no HPV testing was performed. Performed at: [address] [id number] Manufacturing Controller: Jazmyn Corrales MD, Phone: [phone] Performed By: #### L 7400.0353 #### [facility] [address] [place], [address] PAPSMR Comment Normal . [facility] Comment on above: Order Comment: Speci men Comment: [id number] Specimen Comment: No. of containers..01 ThinPrep Vial Result Comment: The Pap smear is a screening test designed to aid in the detection of premalignant and malignant conditions of the uterine cervix. It is not a diagnostic procedure and should not be used as the sole means of detecting cervical cancer. Both false-positive and false-negative reports do occur. Performed By: #### L 7400.0353 #### [facility] [address] [place], [place], [address] PERFORM Comment Normal . [facility] Comment on above: Order Comment: Speci men Comment: [id number] Specimen Comment: No. of containers..01 ThinPrep Vial Result Comment: Willy Guerrero, Dual Hose Cementer (ASCP) Performed By: #### L 7400.0353 #### [facility] [address] [place], [address] State Attorney Office Visit Reporton 03-04-2024 State Attorney Office Visit Report [facility] [address], [address] [place] [address] OFFICE VISIT Date of Service: 03/04/24 MR#: [id number] Acct: [id number] Name: JESUSJOHAN MILLER Rep #: [id number] : 2000 Provider: Dr. 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: No Is patient in pain?: No Allergies penicillin G procaine Adverse Reaction (Mild, Verified 03/04/24 08:06) Nausea/Vom/Diarrhea human papillomavirus vaccine, quadr (From Gardasil (PF)) Adverse Reaction (Verified 03/04/24 08:06) NEEDS FOLLOW-UP Medications ???Medication ???Instructions ???Recorded ???Confirmed ???Type levonorgestrel (Mirena) 1 device intrauterine ONCE 02/11/22 03/04/24 History clindamycin phosphate 1 % topical 1 applic topical QDAY 03/04/24 03/04/24 History gel, once daily (Clindagel) spironolactone 25 mg tablet 25 mg PO DAILY #90 tabs 03/04/24 03/04/24 Rx Post menopausal: No Patient : No : No PFSH Medical History SVT (supraventricular tachycardia) Surgical History S/P ablation operation for arrhythmia History of wisdom tooth extraction, class II edentulism Family History Grandfather Cancer lung Social History Smoking Status: Former smoker alcohol intake: never substance use type: does not use caffeine: No what type of physical activity do you participate in: running and weight training frequency: 5-6 times per week seatbelt use: always do you feel safe at home: Yes additional social history: Single- 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 Last PAP: 12/05/20 History of abnormal PAP: no Last mammogram: n/a History of abnormal mammogram:n/a Colon cancer screening: n/a Other preventative health care screenings: followed by pcp Female Reproductive History Cycle Length: 21-35 Bleeding Duration: 5 Questions: metorrhagia: No, sexually active: Yes, dyspareunia: No and PCB: No Menopausal Symptoms: No hot flashes, No night sweats, No weight change, No mood changes, No difficulty concentrating, No sleep problems and No change in libido ROS Const Constitutional: Reports as per HPI; Denies fatigue, increased appetite, poor appetite, night sweats, weight gain or weight loss Cardio Card: Denies chest pain Resp Resp: Denies cough or dyspnea GI GI: Reports as per HPI; Denies abdominal pain, bloating, constipation, nausea or vomiting : Reports as per HPI and other; Denies difficulty voiding, dysuria, hematuria, hot flashes, nipple discharge, pelvic pain, prolapse symptoms, urinary frequency, urinary incontinence, urinary urgency, vaginal discharge, vaginal dryness, vaginal odor or vaginal pruritus Skin Skin/Breast: Denies changing lesions, breast mass, breast pain, breast skin changes or nipple discharge Psych Psych: Denies anxiety, change in libido, depression or difficulty concentrating Exam Const General: cooperative, healthy appearing, comfortable, no acute distress and well developed HENMT Head: normal to inspection and normocephalic Ears: hearing grossly normal bilaterally and external ears normal Nose: external nose normal Face and sinus: normal facial exam Neck Neck: normal visual inspection, full ROM and no lymphadenopathy Thyroid: thyroid normal Chest Chest palpation inspection: normal inspection of the chest Breast inspection: normal inspection of the breasts and normal inspection of the axillae Breast palpation: normal palpation of the breasts, normal palpation of the axillae and no axillary lymphadenopathy Resp Effort Inspection: normal respiratory effort GI Inspection: normal to inspection and non-distended Palpation: soft, no hepatosplenomegaly and no guarding General: bladder normal to palpation External Female Exam: normal external appearance, normal appearance of the urethra and no lesions Urethra: normal appearance of the urethra and normal palpation Speculum Exam - Vagina: normal appearance of the vagina and normal vaginal discharge Speculum Exam - Cervix: normal appearance of the cervix, no cervical discharge, no lesions and (more content not included)... Normal [facility] XR ANKLE GENERAL 3V AP/LAT/O BL RIGHTon 10-01-[address] [facility] XR Ankle - right AP and Late ral and obliqueon 10-01-2022 IMPRESSION: Small an kle joint effusion and soft tissue swelling. No acute fracture seen. Maintenance Journeyman: PINA Transcribe Date/Time: Oct 01 2022 9:10A Dictated by : MARIA ESTHER MUNOZ MD This examination was interpreted and the report reviewed and electronically signed by: MARIA ESTHER MUNOZ MD on Oct 01 2022 9:12AM [facility] DIVISION OF RADIOLOGY * * *Final Report* * * DATE OF EXAM: Oct 01 2022 9:02AM WOX [id number] - XR ANKLE 3V AP/LAT/OBL RT / PROCEDURE REASON: Acute right ankle pain * * * * Physician Interpretation * * * * EXAM TITLE: XR ANKLE 3V AP/LAT/OBL RT EXAM DATE/TIME: 10/01/2022 9:02 AM COMPARISON: None. CLINICAL INDICATION/HISTORY: Acute ankle pain. TECHNIQUE: AP, mortise and lateral views of the right ankle are presented. FINDINGS: No acute fractures or subluxations are noted. The mortise joint spaces are well preserved. There is small ankle joint effusion. The mineralization of the bones is normal. There is soft tissue swelling along the lateral malleolus. DIVISION OF RADIOLOGY Provider, Ba Sanchez - 10/01/2022 * * *Final Report* * * DATE OF EXAM: Oct 01 2022 9:02AM WOX [id number] - XR ANKLE 3V AP/LAT/OBL RT / PROCEDURE REASON: Acute right ankle pain * * * * Physician Interpretation * * * * EXAM TITLE: XR ANKLE 3V AP/LAT/OBL RT EXAM DATE/TIME: 10/01/2022 9:02 AM COMPARISON: None. CLINICAL INDICATION/HISTORY: Acute ankle pain. TECHNIQUE: AP, mortise and lateral views of the right ankle are presented. FINDINGS: No acute fractures or subluxations are noted. The mortise joint spaces are well preserved. There is small ankle joint effusion. The mineralization of the bones is normal. There is soft tissue swelling along the lateral malleolus. IMPRESSION IMPRESSION: Small ankle joint effusion and soft tissue swelling. No acute fracture seen. Maintenance Journeyman: PSCB Transcribe Date/Time: Oct 01 2022 9:10A Dictated by : MARIA ESTHER MUNOZ MD This examination was interpreted and the report reviewed and electronically signed by: MARIA ESTHER MUNOZ MD on Oct 01 2022 9:12AM EST [facility] Radiology Study observation (narrative) [facility] XR Ankle - right AP and Late ral and obliqueOrdered By: Ccazael Provider on 10-01-[address] [facility] CNOVon 09-10-2022 CNOV Office Visit ([facility] ) JOHAN LEE ([id number]) 2000 F Date Time Provider Department 09/10/22 8:50 AM SILVESTRE SINGH During your visit today, we recorded the following information about you: Temperature Pulse Respiration Blood pressure 98.4 degrees 134/minute 18/minute 140/85 Weight 56.7 kg Silvestre Singh DO 09/10/2022 8:57 AM Signed Adult Sinusitis Patient Education What is Sinusitis? Sinusitis [[id number]-diq-bhla-tis] is inflammation of the sinuses or swelling of the lining of the sinus cavity or nose. During an infection the sinuses become blocked with fluid causing swelling of the lining of the sinuses. Symptoms: (viral and bacterial infections) Stuffy nose Runny nose Postnasal drip Fever Toothache Headache Tiredness Cough Sore throat Face and head pressure and or pain Common causes: 98% of sinus infections are viral caused by viruses. Risk Factors of Sinusitis Include: Allergies, air pollution, indoor humidity and outdoor temperature changes, andstructural changes in the nose may contribute to sinus pain, pressure and congestion. When to get help? Temperature greater than 100.4 ?F Symptoms lasting more than 10 days or worsening symptoms greater than 7-10 days. If you do not improve or worsen after a course of antibiotics, you should be re-examined. Diagnosis and Treatment: Your healthcare provider will ask a number of questions about your symptoms and how long they have occurred. If symptoms of sinusitis persist greater than 10 days, it is possible you have a bacterial sinus infection and an antibiotic is prescribed. If it is viral, antibiotics will not help. You may be instructed to take [id number] medications for symptoms. including fever reducers acetaminophen or ibuprofen, nasal saline spray, cough and cold preparations and decongestants as prescribed by the physician, nurse practitioner or physician child center assistant. Self-Care and Prevention: Rest Fluids for hydration Good hand washing Humidifier Avoid smoking and exposure to second hand smoke Avoid sick contacts Silvestre Singh, DO 09/10/2022 9:15 AM Signed Johan Lee is a 22 year old female who presents with Cough (Chest congestion and sore throat x5days - pt states she has white coat syndrome and he heart rate goes high when she is nervous) Cough, chest congestion, sinus congestion and sore throat, about a week. States has history of tachycardia, SVTs that were ablated years ago. Follow with cardiology, states no chest pain, shortness of breath, drug or smoking use. Cough Associated symptoms include ear pain and sore throat. Pertinent negatives include no chest pain, no chills and no shortness of breath. PAST MEDICAL HISTORY Diagnosis Date NEGATIVE MEDICAL HISTORY normal color vision Periods, menstrual, difficult 2014 Age 14 ACTIVE PROBLEM LIST Bilateral Ankle Pain Menorrhagia With Irregular Cycle Vaccine Reaction Svt (Supraventricular Tachycardia) ([facility]) Current Outpatient Medications Medication Sig Dispense Refill Azelastine HCl (OPTIVAR) 0.05 % ophthalmic solution Use 1 Drop in both eyes twice daily as needed (Eye pruritus). ONE DROP TO THE AFFECTED EYE EVERY 12 HOURS PRN PRURITIS 1 Bottle 4 Drospirenone-Ethinyl Estradiol (MISAEL, 28,) 3-0.02 mg per tablet Take continuous for 12 weeks 3 Package 2 No current facility-administered medications for this visit. Social History Tobacco Use Smoking status: Never Passive exposure: Never Smokeless tobacco: Never Substance Use Topics Alcohol use: Yes Comment: rare Drug use: No Alcohol Use: Yes (rare) Tobacco Use: Never FAMILY HISTORY Problem Relation Age of Onset Cancer Maternal Grandfather multiple myloma Hypertension Maternal Grandmother Thyroid Maternal Grandmother Stroke Paternal Grandmother age 72 Heart Attack Paternal Grandmother Occured in her early 60s Diabetes Paternal Grandfather type II Heart Attack Paternal Grandfather Occured in his 50s and was untreated. Heart Attack Maternal great-grandfather Occured in his 60s Review of Systems Constitutional: Negative for chills and fever. HENT: Positive for congestion, ear pain, sinus pain and sore throat. Respiratory: Positive for cough and sputum production. Negative for shortness of breath. Cardiovascular: Negative for chest pain, orthopnea, claudication and leg swelling. Gastrointestinal: Negative for abdominal pain, diarrhea, nausea and vomiting. Genitourinary: Negative for dysuria. BP 140/85 Pulse 134 Temp 98.4 Resp 18 Wt 125 lb (56.7kg) SpO2 98% LMP 07/29/2021 Physical Exam Constitutional: General: She is not in acute distress. Appearance: She is normal weight. She is not toxic-appearing. HENT: Head: Normocephalic and atraumatic. Right Ear: Ear canal and external ear normal. There is no impacted cerumen. Tympanic memb (more content not included)... Normal [facility] Chlamydia trachomatis rRNA d etection by probe and target amplification methodon 12-09-2021 C. trachomatis rRNA DENAE+probe Ql (Unsp spec) Negative Negative [facility] Work Phone: Laboratory - Microbiology an d Antimicrobial susceptibilityon 12-09-2021 N. gonorrhoeae DNA DENAE+probe Ql (Unsp spec) Negative Negative [facility] Work Phone: Comment on above: Performed at: =G - Yue ramirez [id number] [place], [place] [id number] Director: Jazmyn Corrales MD, Phone: [phone] THROAT STREPon 12-21-2020 THROAT STREP ORGANISM 1: BETA HEM OLYTIC STREP GROUP G QUANTITATION FEW Normal [facility] Comment on above: Order Comment: Regu s: PH Performed By: #### M [id number], [id number] #### [address] [address] MONO SCREEN SATon 12-20-2020 MONO SCREEN SAT Negative Normal NEGATIVE [facility] Comment on above: Order Comment: Regu s: PH Performed By: #### L [id number] #### [address] [address] PHCon 12-19-2020 [facility] DATE OF SERVICE: 08/2020 SUBJECTIVE: This is a 20-year-old female here today with a rash on her arms, legs, and trunk. Started just today. She has been on Zithromax for 3 days. She had a sore throat on December 16. Went to a different urgent care where they put her on Zithromax for tonsillitis. She was not swabbed. She states that she broke out in a rash this morning, and was concerned that she could either have mononucleosis or it could be a reaction to the antibiotic. She is not having any trouble breathing. No wheezing or shortness of breath, but her throat does still hurt. There is no improvement in that. PAST MEDICAL HISTORY: She has no chronic or ongoing medical problems. MEDICATIONS: She is on no regular medications other than control. ALLERGIES: PENICILLIN, and she actually took CEPHALOSPORIN recently that caused a rash, so she may be allergic to that as well. SOCIAL HISTORY: She is a nonsmoker. Drinks alcohol occasionally. FAMILY HISTORY: Unremarkable. [facility] PATIENT NAME: JOHAN LEE Milagros Denny MEDICAL REC #: [id number] [place] [address] [facility] REPORT [facility]CARE PHYSICIAN OBJECTIVE: Her vital signs are stable. She is afebrile. On exam TMs clear. Nares clear. Pharynx shows 1+ tonsils with erythema and exudate. Neck is supple. She has tender anterior lymph nodes, some shotty posterior nodes. Lungs are clear. Heart: Regular, no murmurs, rubs, or gallops. Abdomen is soft. No hepatosplenomegaly. No masses or tenderness. Skin: She has papular, erythematous rash spread out over her trunk and extremities. No pustular lesions. STUDY: A rapid strep here was negative. A mono spot was negative. IMPRESSION: Pharynx with dermatitis, possibly allergic reaction to the Zithromax. PLAN: For her to stop the Zithromax. We will send the strep swab for a culture, but in the meantime she should just treat with Benadryl, Tylenol, Motrin, fluids, and if symptoms worsen contact her doctor or follow up, or go to the ER if she gets severe. Jonas Prince MD /[id number] [facility] PATIENT NAME: JOHAN LEE Milagros Denny MEDICAL REC #: [id number] [place] [address] [facility] REPORT STATCARE PHYSICIAN SSI File#: [id number] END OF DOCUMENT / CHANGE LOG FOLLOWS Last Edited By Elec. Signed By Jonas Prince MD #Jonas Caldwell MD #ZHANNA on 12/26/2020 13:21 ET on 12/26/2020 13:21 ET Revision Number - 2 Verified/Reviewed by 12/26/20 Erasmo ZHANNA [facility] PATIENT NAME: JOHAN LEE [address] Denny MEDICAL REC #: [id number] [place] [address] [facility] REPORT STATCARE PHYSICIAN Normal [facility] REPORT [facility] RAPID STREP Aon 12-19-2020 S. pyogenes Ag IA Ql (Unsp spec) GROUP A STREP PRESUMPTIVE NEGATIVE FOR GROUP A BETA STREPTOCOCCUS Normal [facility] Comment on above: Order Comment: Shiv s: PH Performed By: #### M [id number], [id number] #### [facility] [address] [place] [address] Office Visit: irritationon 0 10-20-2016 Fall risk assessment No [facility] Protein mass conc Done [facility] Tobacco smoking status NHIS Never [facility] Tobacco smoking status NHIS Never smoker [facility] Vital Signs Date Time Vital Sign Value Performing Clinician Facility 06-22-2024 11:21-0400 Body mass index (BMI) [Ratio] 22.18 kg/m2 Aurora Alejandra DO Work Phone: [facility] 06-22-2024 11:21-0400 Body weight 58.06 kg Aurora Alejandra DO Work Phone: [facility] 06-22-2024 11:21-0400 Diastolic blood pressure 70 mm[Hg] Aurora Alejandra DO Work Phone: [facility] 06-22-2024 11:21-0400 Heart rate 150 /min Aurora Alejandra DO Work Phone: [facility] 06-22-2024 11:21-0400 Respiratory rate 16 /min Aurora Alejandra DO Work Phone: [facility] 06-22-2024 11:21-0400 Systolic blood pressure 125 mm[Hg] Aurora Alejandra DO Work Phone: [facility] 10-01-2022 08:45-0400 Body temperature 99 [degF] Krislyn Aberegg PA Work Phone: [facility] 10-01-2022 08:45-0400 Body weight 58.33 kg Krislyn Aberegg PA Work Phone: [facility] 10-01-2022 08:45-0400 Diastolic blood pressure 78 mm[Hg] Krislyn Aberegg PA Work Phone: [facility] 10-01-2022 08:45-0400 Heart rate 150 /min Krislyn Aberegg PA Work Phone: [facility] 10-01-2022 08:45-0400 Respiratory rate 18 /min Krislyn Aberegg PA Work Phone: [facility] 10-01-2022 08:45-0400 SaO2% (BldA) [Mass fraction] 99 % Krislyn Aberegg PA Work Phone: [facility] 10-01-2022 08:45-0400 Systolic blood pressure 118 mm[Hg] Krislyn Aberegg PA Work Phone: [facility] 09-10-2022 09:05-0400 Body temperature 98.4 [degF] [place] Samantha DO Work Phone: [facility] 09-10-2022 09:05-0400 Body weight 56.7 kg [place] Samantha DO Work Phone: [facility] 09-10-2022 09:05-0400 Diastolic blood pressure 85 mm[Hg] Silvestre Samantha DO Work Phone: [facility] 09-10-2022 09:05-0400 Heart rate 134 /min Silvestre Samantha DO Work Phone: [facility] 09-10-2022 09:05-0400 Respiratory rate 18 /min [place] Samantha DO Work Phone: [facility] 09-10-2022 09:05-0400 SaO2% (BldA) [Mass fraction] 98 % Silvestre Samantha DO Work Phone: [facility] 09-10-2022 09:05-0400 Systolic blood pressure 140 mm[Hg] [place] Samantha DO Work Phone: [facility] 07-10-2022 07:32-0400 Body temperature 98.4 [degF] Saranya Long PA-C Work Phone: [facility] 07-10-2022 07:32-0400 Body weight 54.43 kg Saranya Long PA-C Work Phone: [facility] 07-10-2022 07:32-0400 Diastolic blood pressure 86 mm[Hg] Saranya Long PA-C Work Phone: [facility] 07-10-2022 07:32-0400 Heart rate 165 /min Saranya Long PA-C Work Phone: [facility] 07-10-2022 07:32-0400 SaO2% (BldA) [Mass fraction] 97 % Saranya Long PA-C Work Phone: [facility] 04-27-2023 07:32-0400 Systolic blood pressure 120 mm[Hg] Saranya Crawley PA-C Work Phone: [facility] 12-09-2021 09:22-0400 Body height 160.[address] Maricel Gonzalez Work Phone: [facility] Work Phone: 12-09-2021 09:22-0400 Body mass index (BMI) [Ratio] 22.1 kg/m2 Dr. Maricel Gonzalez Work Phone: [facility] Work Phone: 12-09-2021 09:22-0400 Body weight 56.[address] Maricel Gonzalez Work Phone: [facility] Work Phone: 12-09-2021 09:22-0400 Diastolic blood pressure 80 mm[Hg] Dr. Maricel Gonzalez Work Phone: [facility] Work Phone: 12-09-2021 09:22-0400 Systolic blood pressure 127 mm[Hg] Dr. Maricel Gonzalez Work Phone: [facility] Work Phone: 07-30-2021 10:54-0400 Body height 161.8 cm Maricel Gonzalez MD Work Phone: [facility] 07-30-2021 10:54-0400 Body temperature 98.01 [degF] Maricel Gonzalez MD Work Phone: [facility] 07-30-2021 10:54-0400 Body weight 55.61 kg Maricel Gonzalez MD Work Phone: [facility] 07-30-2021 10:54-0400 Diastolic blood pressure 66 mm[Hg] Maricel Gonzalez MD Work Phone: [facility] 07-30-2021 10:54-0400 Heart rate 82 /min Maricel Gonzalez MD Work Phone: [facility] 07-30-2021 10:54-0400 Respiratory rate 14 /min Maricel Gonzalez MD Work Phone: [facility] 07-30-2021 10:54-0400 Systolic blood pressure 112 mm[Hg] Maricel Gonzalez MD Work Phone: [facility] 10-20-2016 14:06-0400 BMI (Body Mass Index) 21.18 kg/m2 Nai Rangel NP [facility] 10-20-2016 14:06-0400 Body Temperature 99.1 [degF] Nai Rangel [employer] [facility] 10-20-2016 14:06-0400 BP Diastolic 75 mm[Hg] Nai Rangel [employer] [facility] 10-20-2016 14:06-0400 BP Systolic 110 mm[Hg] Nai Rangel NP [facility] 10-20-2016 14:06-0400 Height 157.48 cm Nai Rangel NP [facility] 10-20-2016 14:06-0400 Pulse (Heart Rate) 137 /min Nai Rangel NP [facility] 10-20-2016 14:06-0400 Respiratory Rate 17 /min Nai Rangel [employer] [facility] 10-20-2016 14:06-0400 Weight 52.53 kg Nai Rangel NP [facility] Encounters Encounter Date Encounter Type Care Provider Facility Start: 07-19-2024 End: 09-18-2024 Follow-up encounter Jamila Laurel BROWNE Work Phone: Internal [facility] Start: 07-18-2024 End: 07-18-2024 ambulatory AURORA ROBERTS Facility:[facility] Start: 07-18-2024 Encounter for genera l adult medical examination without abnormal findings AURORA ROBERTS [facility] Start: 06-22-2024 End: 06-22-2024 ambulatory AURORA ROBERTS Facility:[facility] Start: 06-22-2024 End: 06-22-2024 Office outpatient visit 15 minutes Aurora Roberts DO Work Phone: [facility] Comment on above: Encounter to [facility] (Primary Dx); Preventative health care; Adult wellness visit; Personal history of supraventricular tachycardia; Screening for cervical cancer Start: 06-22-2024 End: 06-22-2024 Patient encounter status Aurora Roberts DO Work Phone: [facility] Start: 03-04-2024 End: 03-04-2024 ambulatory Lakeisha Keane Facility:[facility] Start: 03-04-2024 End: 03-04-2024 ambulatory Maricel Gonzalez Facility:[facility] Start: 12-17-2022 End: 12-18-2022 ambulatory Dionne Casanova APRN.CNP Work Phone: Telemedicine Comment on above: Treatment not availa ble (Primary Dx) Start: 10-01-2022 End: 10-01-2022 Subsequent hospital visit by physician Xr [facility] Work Phone: Radiology Comment on above: Acute right ankle pa in [M25.571] Start: 10-01-2022 End: 10-01-2022 Patient encounter procedure Renato WOLF Work Phone: [facility] Comment on above: Acute right ankle pa in (Primary Dx); Tachycardia Start: 09-10-2022 End: 09-10-2022 ambulatory MARICEL GONZALEZ Facility:[id number] Start: 09-10-2022 End: 09-10-2022 Office outpatient visit 15 minutes Silvestre Samantha DO Work Phone: [facility] Comment on above: Acute non-recurrent frontal sinusitis (Primary Dx); Acute cough; Tachycardia Start: 07-10-2022 End: 07-10-2022 Patient encounter procedure Saranya Crawley PA-C Work Phone: [facility] Comment on above: Dysuria (Primary Dx) ; Tachycardia Start: 06-18-2022 Get Medical Advice Maricel jarquin MD Work Phone: [facility] Comment on above: TB Blood Test Order Request Start: 12-14-2021 End: 12-14-2021 ambulatory Immunization [facility] Nurse Ara Work Phone: [facility] Start: 12-13-2021 End: 12-13-[address] Maricel Gonzalez Work Phone: [facility] Work Phone: Start: 12-13-2021 End: 12-13-[address] Maricel Gonzalez Work Phone: [facility] Start: 12-09-2021 End: 12-09-[address] Maricel Gonzalez Work Phone: [facility] Start: 08-15-2021 End: 08-15-2021 Patient encounter procedure Nurse [facility] Comment on above: Encounter for PPD sk in test reading (Primary Dx) Start: 08-13-2021 End: 08-13-2021 Patient encounter procedure Nurse Peds [facility] Comment on above: Encounter for screen ing for respiratory tuberculosis (Primary Dx) Start: 08-02-2021 End: 08-02-2021 Patient encounter procedure Nurse Peds [facility] Comment on above: Encounter for PPD sk in test reading (Primary Dx) Start: 07-30-2021 End: 07-30-2021 Patient encounter procedure Maricel Gonzalez MD Work Phone: [facility] Comment on above: Encounter for genera l adult medical examination without abnormal findings (Primary Dx); Screening-pulmonary TB; Screening examination for infectious disease; Encounter for immunization Start: 07-30-2021 End: 07-30-2021 Patient encounter status Maricel Gonzalez MD Work Phone: [facility] Procedures Date Procedure Procedure Detail Performing Clinician Start: 10-01-2022 Radex ankle complete minimum 3 views Renato WOLF Work Phone: Start: 12-14-2021 INFLUENZA VACCINE QUADRIVALENT 6 MO - 64 YRS IM Rodrigo Preciado DO Work Phone: Start: 12-13-[address] Maricel Gonzalez Work Phone: Start: 12-13-[address] Hilton Gonzalez Work Phone: Start: 08-13-2021 Skin test tuberculos is intradermal Maricel Gonzalez MD Work Phone: Start: 07-30-2021 Skin test tuberculos is intradermal Maricel Gonzalez MD Work Phone: Start: 07-29-2021 Adult depression scr eening assessment Maricel Gonzalez MD Work Phone: Plan of Treatment Date Care Activity Detail Author Start: 07-31-2031 Urine microalbumin profile [facility] Start: 02-13-2027 Screening for malign ant neoplasm of cervix Cervical Cancer Screening [facility] Comment on above: Postponed from 03/12 (Postponed To Appropriate Date) Start: 11-14-2024 Influenza vaccination Influenza Vacc ine (#1) [facility] Start: 06-22-2024 End: 09-21-2024 BLOOD TB SCREEN BLOOD TB SCREEN Lab Routine Adult wellness visit Expected: 06/22/2024, Expires: 09/21/[address] [facility] Comment on above: Expected: 06/22/2024 , Expires: 09/21/2024 Start: 06-22-2024 End: 09-21-2024 CBC panel - Blood by Automated count COMPLETE BLOOD COUNT Lab Routine Adult wellness visit Expected: 06/22/2024, Expires: 09/21/[address] [facility] Comment on above: Expected: 06/22/2024 , Expires: 09/21/2024 Start: 06-22-2024 End: 09-21-2024 Comprehensive metabolic 2000 panel - Serum or Plasma COMPREHENSIVE METABOLIC PANEL Lab Routine Adult wellness visit Expected: 06/22/2024, Expires: 09/21/[address] [facility] Comment on above: Expected: 06/22/2024 , Expires: 09/21/2024 Start: 06-22-2024 End: 09-21-2024 Hemoglobin A1c in Blood HEMOGLOBIN A1C Lab Routine Adult wellness visit Expected: 06/22/2024, Expires: 09/21/2024 [facility] Work Phone: Comment on above: Expected: 06/22/2024 , Expires: 09/21/2024 Start: 06-22-2024 End: 09-21-2024 Lipid 1996 panel - Serum or Plasma LIPID PANEL, FASTING Lab Routine Adult wellness visit Expected: 06/22/2024, Expires: 09/21/[address] [facility] Comment on above: Expected: 06/22/2024 , Expires: 09/21/2024 Start: 11-15-2023 Covid-19 Vaccine ( season) Covid-19 Vaccine ( season) [facility] Start: 11-15-2023 Influenza vaccination Influenza Vacc ine (#1) [facility] Start: 11-14-2022 Influenza vaccination C [facility] Start: 07-29-2022 Adult depression screening assessment DEPRESSION SCREENING [facility] Start: 06-18-2022 End: 08-18-2022 BLOOD TB SCREEN BLOOD TB SCREEN Lab Routine Screening-pulmonary TB Expected: 06/18/2022, Expires: 08/18/2022 [facility] Work Phone: Comment on above: Expected: 06/18/2022 , Expires: 08/18/2022 Start: 03-16-2022 DEPRESSION ASSESSMENT DEPRESSION ASS ESSMENT [facility] Start: 12-09-2021 CHLAMYDIA SCREENING (18-24) CHLAMYDIA SCREENING (18-24) [facility] Start: 12-09-2021 GC (GONORRHEA) SCREENING (18-24) GC (GONORRHEA) SCREENING (18-24) [facility] Start: 07-30-2021 End: 09-29-2021 Hepatitis B virus surface Ab [Units/volume] in Serum [facility] Work Phone: Comment on above: Expected: 07/30/2021 , Expires: 09/29/2021 Start: 07-30-2021 End: 09-29-2021 Hepatitis C virus Ab [Presence] in Serum [facility] Work Phone: Comment on above: Expected: 07/30/2021 , Expires: 09/29/2021 Start: 07-30-2021 End: 09-29-2021 HIV 1+2 Ab [Presence] in Serum or Plasma by Immunoassay [facility] Work Phone: Comment on above: Expected: 07/30/2021 , Expires: 09/29/2021 Start: 04-02-2021 COVID-19 VACCINE (4 - Booster for Pfizer series) COVID-19 VACCINE (4 - Booster for Pfizer series) [facility] Start: 03-16-2021 DEPRESSION ASSESSMENT DEPRESSION ASS ESSMENT [facility] Start: 2020 PAP TESTING PAP TESTING [facility] Start: 2020 Screening for malign ant neoplasm of cervix Cervical Cancer Screening [facility] Start: 2017 Anxiety Screening Anxiety Screening [facility] Start: 2017 Depression Screening Depression Scre ening [facility] Start: 2017 HEPATITIS C SCREENING HEPATITIS C SC REENING [facility] Start: 2017 HIV SCREENING HIV SCREENING [facility] Start: 10-20-2016 End: 10-20-2016 Appointment [facility] Start: 02-01-2016 HPV VACCINE (3 - 3-d ose series) HPV VACCINE (3 - 3-dose series) [facility] Start: 2015 Meningococcal B Vaccine: Consider Based On Risk (1 of 2 - Patient Seeks Protection) Meningococcal B Vaccine: Consider Based On Risk (1 of 2 - Patient Seeks Protection) [facility] Start: 2015 MENINGOCOCCAL B: Consider based on risk (1 of 2 - Patient Seeks Protection) MENINGOCOCCAL B: Consider based on risk (1 of 2 - Patient Seeks Protection) [facility] Start: 2013 PEDS TO ADULT TRANSITION ANNUAL ASSESSMENT PEDS TO ADULT TRANSITION ANNUAL ASSESSMENT [facility] Start: 2009 MENINGOCOCCAL B: Consider based on risk (1 of 2 - Risk Bexsero 2-dose series) MENINGOCOCCAL B: Consider based on risk (1 of 2 - Risk Bexsero 2-dose series) [facility] Bacteria identified in Urine by Culture URINE CULTURE Microbiology Routine Dysuria 07/10/2022 8:24 AM EDT [facility] Work Phone: UA DIP, URINE (POC) UA DIP, URIN E (POC) Lab Routine Dysuria Ordered: 07/10/2022 [facility] Work Phone: Comment on above: Ordered: 07/10/2022 [facility] Immunizations Immunization Date Immunization Notes Care Provider Ml guerrero 12-24-2023 influenza virus vaccine, unspecified formulation Jamila Barragan APRN.CNP Work Phone: [facility] 12-21-2022 influenza virus vaccine, unspecified formulation [facility] [place] Work Phone: [facility] 12-14-2021 influenza, injectabl e, quadrivalent, contains preservative Immunization Ara Work Phone: [facility] 12-14-2021 influenza virus vaccine, unspecified formulation Dionne Jocelyne PACKAGING SPECIALIST.GUEST SERVICES OFFICER Work Phone: [facility] 08-13-2021 tuberculin skin test ; purified protein derivative solution, intradermal [facility] [place] Work Phone: [facility] 07-30-2021 tetanus and diphther ia toxoids, adsorbed, preservative free, for adult use (5 Lf of tetanus toxoid and 2 Lf of diphtheria toxoid) Maricel Gonzalez MD Work Phone: [facility] 07-30-2021 tuberculin skin test ; purified protein derivative solution, intradermal [facility] [place] Work Phone: [facility] 07-30-2021 TD(adult) unspecifie d formulation Maricel Gonzalez MD Work Phone: [facility] Work Phone: 03-01-2021 influenza, injectabl e, quadrivalent, contains preservative Maricel Gonzalez MD Work Phone: [facility] Work Phone: 03-20-2017 varicella virus vaccine Maricel Gonzalez MD Work Phone: [facility] 11-10-2016 meningococcal polysaccharide (groups A, C, Y and W-135) diphtheria toxoid conjugate vaccine (MCV4P) Maricel Gonzalez MD Work Phone: [facility] 10-01-2015 Human Papillomavirus 9-valent vaccine Maricel Gonzalez MD Work Phone: [facility] 07-30-2015 Human Papillomavirus 9-valent vaccine Maricel Gonzalez MD Work Phone: [facility] 01-21-2012 influenza virus vaccine, live, attenuated, for intranasal use Maricel Gonzalez MD Work Phone: [facility] Work Phone: 10-30-2011 Meningococcal, MCV4, unspecified conjugate formulation(groups A, C, Y and W-135) Maricel Gonzalez MD Work Phone: [facility] Work Phone: 10-30-2011 tetanus toxoid, redu arpita diphtheria toxoid, and acellular pertussis vaccine, adsorbed Maricel Gonzalez MD Work Phone: [facility] Work Phone: 12-17-2010 influenza virus vaccine, live, attenuated, for intranasal use Maricel Gonzalez MD Work Phone: [facility] Work Phone: 12-31-2009 influenza virus vaccine, live, attenuated, for intranasal use Maricel Gonzalez MD Work Phone: [facility] 12-16-2008 influenza virus vaccine, live, attenuated, for intranasal use Maricel Gonzalez MD Work Phone: [facility] Work Phone: 10-15-2005 varicella virus vaccine Maricel Gonzalez MD Work Phone: [facility] Work Phone: 05-02-2004 diphtheria, tetanus toxoids and acellular pertussis vaccine Maricel Gonzalez MD Work Phone: [facility] Work Phone: 05-02-2004 measles, mumps and rubella virus vaccine Maricel Gonzalez MD Work Phone: [facility] Work Phone: 05-02-2004 poliovirus vaccine, inactivated Maricel Gonzalez MD Work Phone: [facility] Work Phone: 10-26-2000 diphtheria, tetanus toxoids and acellular pertussis vaccine Maricel Gonzalez MD Work Phone: [facility] Work Phone: 10-26-2000 haemophilus influenz ae type b vaccine, HbOC conjugate Maricel Gonzalez MD Work Phone: [facility] Work Phone: 10-26-2000 poliovirus vaccine, inactivated Maricel Gonzalez MD Work Phone: [facility] Work Phone: 06-24-2000 measles, mumps and rubella virus vaccine Maricel Gonzalez MD Work Phone: [facility] Work Phone: 03-25-2000 hepatitis B vaccine, pediatric or pediatric/adolescent dosage Maricel Gonzalez MD Work Phone: [facility] Work Phone: 1999 hepatitis B vaccine, pediatric or pediatric/adolescent dosage Maricel Gonzalez MD Work Phone: [facility] Work Phone: 1999 diphtheria, tetanus toxoids and acellular pertussis vaccine Maricel Gonzalez MD Work Phone: [facility] Work Phone: 1999 haemophilus influenz ae type b vaccine, HbOC conjugate Maricel Gonzalez MD Work Phone: [facility] Work Phone: 1999 hepatitis B vaccine, pediatric or pediatric/adolescent dosage Maricel Gonzalez MD Work Phone: [facility] Work Phone: 1999 diphtheria, tetanus toxoids and acellular pertussis vaccine Maricel Gonzalez MD Work Phone: [facility] Work Phone: 1999 haemophilus influenz ae type b vaccine, HbOC conjugate Maricel Gonzalez MD Work Phone: [facility] Work Phone: 1999 poliovirus vaccine, inactivated Maricel Gonzalez MD Work Phone: [facility] Work Phone: 1999 diphtheria, tetanus toxoids and acellular pertussis vaccine Maricel Gonzalez MD Work Phone: [facility] Work Phone: 1999 haemophilus influenz ae type b vaccine, HbOC conjugate Maricel Gonzalez MD Work Phone: [facility] Work Phone: 1999 poliovirus vaccine, inactivated Marciel Gonzalez MD Work Phone: [facility] Work Phone: Payers Date Payer Category Payer Self-pay [id number] 2023 Unknown [id number] 2022 Private Health Insurance [facility] [employer] [id number] 2022 Unknown [id number] 2010 Unknown [employer]AR[employer] PPO [id number] 2010-Present [phone] [address] [place] [address] PPO [id number] 2010 Unknown [id number] 2010 Unknown [id number] Unknown [id number] Unknown [id number] Social History Date Type Detail Facility Start: 01-17-2013 End: 09-10-2022 Tobacco smoking status NHIS Never smoked tobacco [facility] Start: 07-30-2021 End: 07-10-2022 Alcohol intake Current non-drinker of alcohol (finding) [facility] Start: 07-29-2021 History SDOH Alcohol Frequency [address] [facility] Start: 07-29-2021 History SDOH Alcohol Std Drinks [address] [facility] Start: 07-29-2021 History SDOH Social Connections Phone [address] [facility] Start: 07-29-2021 History SDOH Social Connections Living [address] [facility] Start: 07-29-2021 History SDOH Physica l Activity DPW [address] [facility] Start: 07-29-2021 History SDOH Physica l Activity MPS [address] [facility] Start: 07-29-2021 History SDOH Transpo rt Med [address] [facility] Start: 1999 Sex Assigned At Not on file [facility] Start: 07-19-2021 End: 07-29-2021 Exposure to SARS-CoV-2 (event) Not sure [facility] Start: 01-17-2013 End: 09-10-2022 Tobacco use and exposure Smokeless tobacco non-user [facility] Start: 12-09-2021 Tobacco smoking stat [facility] Unknown if ever smoked [facility] Work Phone: Start: 09-24-2019 None [facility] Work Phone: Start: 09-24-2019 With Family [facility] Work Phone: Start: 2000 Sex Assigned At Female [facility] Work Phone: Start: 09-10-2022 End: 06-22-2024 Alcohol intake Current drinker of alcohol (finding) [facility] Start: 09-10-2022 Alcohol Comment rare [facility] Start: 10-01-2022 End: 06-21-2024 History of Social function [facility] Start: 10-01-2022 End: 06-21-20[address] Tobacco use [address] [facility] Adult Depression Screening Assessment [address] [facility] Do you belong to any clubs or organizations such as judaism groups, unions, fraternal or athletic groups, or school groups? Yes [facility] Are you now , , , , never or living with a partner? Never [facility] How often to you hav e a drink containing alcohol? 2-[address] [facility] How many standard dr inks containing alcohol do you have on a typical day? [address] [facility] How often do you hav e 6 or more drinks on 1 occasion? Never [facility] Do you feel stress - tense, restless, nervous, or anxious, or unable to sleep at night because your mind is troubled all the time - these days [OSQ] Not at all [facility] (I/We) worried wheth er (my/our) food would run out before (I/we) got money to buy more. Never true [facility] In the past 12 month s, was there a time when you were not able to pay the mortgage or rent on time? No [facility] How often to you hav e a drink containing alcohol? Monthly or less [facility] NEGATED: Highlighted rowStart: CLAY History of tobacco use Passive smoker [facility] Functional Status Date Assessment Result Facility 11-03-2019 Are you deaf, or do you have serious difficulty hearing No 11/03/2019 4:30 PM EDT Nai Egan RN No [facility] 11-03-2019 Are you blind, or do you have serious difficulty seeing, even when wearing glasses No 11/03/2019 4:30 PM EDT Nai Egan RN No [facility] 11-03-2019 Do you have serious difficulty walking or climbing stairs No 11/03/2019 4:30 PM EDT Nai Egan, RN No [facility] 11-03-2019 Do you have difficul ty dressing or bathing No 11/03/2019 4:30 PM EDT Nai Egan RN No [facility] 11-03-2019 Because of a physica l, mental, or emotional condition, do you have difficulty doing errands alone such as visiting a physician's office or shopping No 11/03/2019 4:30 PM EDT Nai Egan RN No [facility] Mental Status Date Assessment Result Facility 11-03-2019 Because of a physica l, mental, or emotional condition, do you have serious difficulty concentrating, remembering, or making decisions No 11/03/2019 4:30 PM EDT Nai Egan RN No [facility] Clinical Notes 07-30-2021 to 06-22-2024 Aurora Roberts, DO - 06/22/2024 1:59 PM Dionne Houston APRN.GUEST SERVICES OFFICER - 12/18/2022 7:58 AM EDTPatient InstructionsGina Morton RT(Farhana) - 10/01/2022 9:00 AM EDTPatient Instructions Note Date & Type Note Facility 06-22-2024 Note HNO ID: [id number] Author: AURORA ROBERTS DO Service: ? Author Type: Physician Type: Progress Notes Filed: 06/22/2024 14:01 Note Text: PRIMARY CARE OFFICE VISIT June 22, 2024 History: Johan is a 24-year-old female presenting for an initial visit to establish care. Initial Visit: - Last seen by a ambulette driver; no PCP since. - No current health concerns. - Recent Pap smear in February 2024; no history of abnormal results. - Received two doses of Gardasil at ages 14-15; experienced severe nausea, emesis, and visual disturbances post-vaccination. - Family history of lung cancer in grandfather. - Denies tobacco or alcohol use. 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 - Asks about vitamin recommendations. SVT: - History of SVT with ablation in 2019; no recurrence since. - Denies current medication use for SVT. - Reports tachycardia during medical appointments, but normal heart rate otherwise. Acne: - Taking spironolactone for acne management. - Uses topical treatments. ROS: (No current symptoms explicitly mentioned in the transcript. No ROS items to list.) The patient consented to the use of [employer] software for draft documentation of the visit consistent with [facility]?s Notice of Privacy Practices. Physical exam: BP 125/70 Pulse (!) 150 Resp 16 Wt 58.1 kg (128 lb) LMP 07/29/2021 BMI 22.18 kg/m? General: no acute distress, conversant Eyes: conjunctivae clear Pulm: respirations are even and unlabored CV: vitals as above, extremities well perfused Abdomen: non-distended Neuro: alert, oriented, and moving all four limbs Psych: appropriate mood and affect Skin: warm and dry Assessment AND Plan: 1. Encounter to establish care (Z76.89) 2. Preventative health care (Z00.00) 3. Adult wellness visit (Z00.00) - Established care as a new patient. - Discussed the importance of regular health screenings and preventative care. - Ordered comprehensive lab work including lipid panel, CMP, CBC, and HbA1c. - Labs to be drawn in July; patient advised to fast prior to the appointment. - Ordered TB blood test to be completed after July 14 as required for school. - Discussed vitamin supplementation; advised that a multivitamin is generally safe and excess will be excreted by the body. - Patient to schedule a follow-up visit in one year. 4. Personal history of supraventricular tachycardia (Z86.79) - History of SVT with successful ablation in 2019; no recurrence since the procedure. - No current medications for SVT. - Tachycardia noted during the visit, likely due to situational anxiety; patient reports normal heart rate outside of clinical settings. - Continue current management; no further intervention required at this time. 5. Screening for cervical cancer (Z12.4) - Recent Pap smear performed in February 2024 with normal results. - Discussed HPV vaccination history; patient received two doses of Gardasil but experienced significant adverse reactions. - Advised that two doses are generally sufficient, especially given the adverse reaction to the third dose. - Next Pap smear due in February 2027. Aurora Roberts DO Internal Medicine Medical Billing Statement [id number] This visit should be coded by complexity; MDM was of low complexity. OVERALL COMPLEXITY Problem Complexity: Low Data Level: Low Risk Level: Straightforward Overall MDM complexity (2/3 must be met or exceeded): Low PROBLEMS SECTION: 1. Personal history of supraventricular tachycardia - Stable, Chronic Illness One stable chronic illness (Low complexity) Problem complexity level: Low DATA SECTION: - Review of prior external note(s) from each unique source: - Review of the result(s) of each unique test: - Ordering of each unique test: lipid panel; CMP; CBC; HbA1c; TB blood test - 5 unique tests ordered - Assessment requiring an independent historian(s): - Independent interpretation of a test performed by another physician/other qualified health post acute care registered nurse: - Discussion of management or test interpretation with external physician/other qualified health post acute care registered nurse/appropriate source: Data complexity level: Limited; meets the requirements of at least 1 out of 2 categories RISKS SECTION: Comprehensive lab work (lipid panel, CMP, CBC, HbA1c, TB blood test) - Minimal complexity Vitamin supplementation (multivitamin) - Minimal complexity Risks complexity level (highest from above): Minimal 06/22/2024 [employer] 06-22-2024 History of Present illness Narrative Images from the original note were not included. PRIMARY CARE OFFICE VISIT June 22, 2024 History: Johan is a 24-year-old female presenting for an initial visit to establish care. Initial Visit: - Last seen by a ambulette driver; no PCP since. - No current health concerns. - Recent Pap smear in February 2024; no history of abnormal results. - Received two doses of Gardasil at ages 14-15; experienced severe nausea, emesis, and visual disturbances post-vaccination. - Family history of lung cancer in grandfather. - Denies tobacco or alcohol use. 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 - Asks about vitamin recommendations. SVT: - History of SVT with ablation in 2019; no recurrence since. - Denies current medication use for SVT. - Reports tachycardia during medical appointments, but normal heart rate otherwise. Acne: - Taking spironolactone for acne management. - Uses topical treatments. ROS: (No current symptoms explicitly mentioned in the transcript. No ROS items to list.) The patient consented to the use of [employer] software for draft documentation of the visit consistent with [facility] s Notice of Privacy Practices. Physical exam: BP 125/70 Pulse (!) 150 Resp 16 Wt 58.1 kg (128 lb) LMP 07/29/2021 BMI 22.18 kg/m General: no acute distress, conversant Eyes: conjunctivae clear Pulm: respirations are even and unlabored CV: vitals as above, extremities well perfused Abdomen: non-distended Neuro: alert, oriented, and moving all four limbs Psych: appropriate mood and affect Skin: warm and dry Assessment & Plan: 1. Encounter to establish care (Z76.89) 2. Preventative health care (Z00.00) 3. Adult wellness visit (Z00.00) - Established care as a new patient. - Discussed the importance of regular health screenings and preventative care. - Ordered comprehensive lab work including lipid panel, CMP, CBC, and HbA1c. - Labs to be drawn in July; patient advised to fast prior to the appointment. - Ordered TB blood test to be completed after July 14 as required for school. - Discussed vitamin supplementation; advised that a multivitamin is generally safe and excess will be excreted by the body. - Patient to schedule a follow-up visit in one year. 4. Personal history of supraventricular tachycardia (Z86.79) - History of SVT with successful ablation in 2019; no recurrence since the procedure. - No current medications for SVT. - Tachycardia noted during the visit, likely due to situational anxiety; patient reports normal heart rate outside of clinical settings. - Continue current management; no further intervention required at this time. 5. Screening for cervical cancer (Z12.4) - Recent Pap smear performed in February 2024 with normal results. - Discussed HPV vaccination history; patient received two doses of Gardasil but experienced significant adverse reactions. - Advised that two doses are generally sufficient, especially given the adverse reaction to the third dose. - Next Pap smear due in February 2027. Aurora Roberts, Internal Medicine Medical Billing Statement [id number] This visit should be coded by complexity; MDM was of low complexity. OVERALL COMPLEXITY Problem Complexity: Low Data Level: Low Risk Level: Straightforward Overall MDM complexity (2/3 must be met or exceeded): Low PROBLEMS SECTION: 1. Personal history of supraventricular tachycardia - Stable, Chronic Illness One stable chronic illness (Low complexity) Problem complexity level: Low DATA SECTION: - Review of prior external note(s) from each unique source: - Review of the result(s) of each unique test: - Ordering of each unique test: lipid panel; CMP; CBC; HbA1c; TB blood test - 5 unique tests ordered - Assessment requiring an independent historian(s): - Independent interpretation of a test performed by another physician/other qualified health post acute care registered nurse: - Discussion of management or test interpretation with external physician/other qualified health post acute care registered nurse/appropriate source: Data complexity level: Limited; meets the requirements of at least 1 out of 2 categories RISKS SECTION: Comprehensive lab work (lipid panel, CMP, CBC, HbA1c, TB blood test) - Minimal complexity Vitamin supplementation (multivitamin) - Minimal complexity Risks complexity level (highest from above): Minimal 06/22/2024 documented in this encounter [facility] 12-18-2022 History of Present illness Narrative This is an Express Care eVisit note for Johan Solis Jesus eVisit/Questionnaire reviewed The chief complaint for the visit - Patient presents with: Sinus Problem Sore Throat Ear Problem Recommendations/Treatment plan - See My Chart Message to patient Time spent <1 min Dionne Casanova APRN.GUEST SERVICES OFFICER documented in this encounter [facility] 10-01-2022 Instructions Renato Castillo PA - 10/01/2022 9:08 AM EDT R.I.C.E. The general care of your injury includes the following: Resting, Icing, Compressing and Elevating the injured area. Remember this as RICE. REST: Limit the use of the injured body part. ICE: By applying ice to the affected area, swelling and pain can be reduced. Place some ice cubes in a re-sealable (Ziploc) bag and add some water. Put a thin washcloth between the bag and your skin. Apply the ice bag to the area for at least 20 minutes. Do this at least 4 times per day. Using the ice for longer times and more frequently is OK. NEVER APPLY ICE DIRECTLY TO THE SKIN. COMPRESS: Compression means to apply pressure around the injured area such as with a splint, cast or an melissa bandage. Compression decreases swelling and improves comfort. Compression should be tight enough to relieve swelling but not so tight as to decrease circulation. Increasing pain, numbness, tingling, or change in skin color, are all signs of decreased circulation. ELEVATE: Elevate the injured part. For example, elevate your foot by placing it on a chair while sitting, or propping it up on pillows when lying down. documented in this encounter [facility] 10-01-2022 History of Present illness Narrative Radiology Service Progress Note PATIENT NAME: Johan Lee DATE OF SERVICE: October 01, 2022 TIME: 8:52 AM PATIENT IDENTITY VERIFICATION COMPLETED USING TWO (2) IDENTIFIERS: Name and Date of confirmed by patient verbally. FALL SCREENING: Has the patient had 2 falls in the last year or 1 fall with injury or currently using an Ambulatory Assistive Device (Walker, Cane, Wheelchair, Crutches, etc.)? No PATIENT GENDER DATA: Female. status: : No status: NO. PATIENT RELEVANT IMPLANT DATA REVIEWED: Not Applicable RADIOLOGY DEPARTMENT: General X-ray: Exam(s) Completed: Lower Extremity X-Ray(s): Ankle, Right and Wt. Bearing PERIPHERAL IV DATA: Not applicable SIGNED BY: RT Sarah(R) October 01, 2022 8:52 AM documented in this encounter [facility] 10-01-2022 History of Present illness Narrative This note was created using [employer]. Subjective Johan Lee is a 22 year old female. HPI 22-year-old female presents for right ankle pain. Patient has been having right ankle pain since yesterday after injuring it. She states she was walking on rocks and twisted her right ankle. She has pain over the lateral ankle and swelling. She is still able to ambulate. No numbness or tingling in the foot. She has sprained this ankle in the past. PAST MEDICAL HISTORY Diagnosis Date NEGATIVE MEDICAL HISTORY normal color vision Periods, menstrual, difficult 2014 Age 14 PAST SURGICAL HISTORY Procedure Laterality Date NONE ALLERGIES Penicillins and Gardasil 9 (Pf) [Human Papillomav Vac,9-Demetrio(Pf)] MEDICATIONS Azelastine HCl (OPTIVAR) 0.05 % ophthalmic solution Use 1 Drop in both eyes twice daily as needed (Eye pruritus). ONE DROP TO THE AFFECTED EYE EVERY 12 HOURS PRN PRURITIS Drospirenone-Ethinyl Estradiol (MISAEL, Phill,) 3-0.02 mg per tablet Take continuous for 12 weeks FAMILY HISTORY Problem Relation Age of Onset Cancer Maternal Grandfather multiple myloma Hypertension Maternal Grandmother Thyroid Maternal Grandmother Stroke Paternal Grandmother age 72 Heart Attack Paternal Grandmother Occured in her early 60s Diabetes Paternal Grandfather type II Heart Attack Paternal Grandfather Occured in his 50s and was untreated. Heart Attack Maternal great-grandfather Occured in his 60s Social History Tobacco Use Smoking status: Never Passive exposure: Never Smokeless tobacco: Never Substance Use Topics Alcohol use: Yes Comment: rare Drug use: No Review of Systems Constitutional: Negative for chills and fever. HENT: Negative for congestion, ear pain and sore throat. Respiratory: Negative for cough and shortness of breath. Cardiovascular: Negative for chest pain. Gastrointestinal: Negative for diarrhea and vomiting. Musculoskeletal: Positive for arthralgias. Objective BP 118/78 Pulse (!) 150 Temp 37.2 C (99 F) (Tympanic) Resp 18 Wt 58.3 kg (128 lb 9.6 oz) LMP 07/29/2021 SpO2 99% BMI 22.28 kg/m Physical Exam Vitals and nursing note reviewed. Constitutional: General: She is not in acute distress. Appearance: Normal appearance. She is not toxic-appearing. Cardiovascular: Rate and Rhythm: Regular rhythm. Tachycardia present. Musculoskeletal: Right ankle: Swelling present. Tenderness present over the lateral malleolus. Decreased range of motion. Normal pulse. Right Achilles Tendon: Normal. No tenderness. Comments: Mild swelling over right lateral ankle. Slightly decreased ROM right ankle due to pain. Still able to plantar and dorsiflex. Tenderness over lateral malleolus. Nontender Achilles. Nontender foot. Pulses 2+. Skin: General: Skin is warm and dry. Neurological: Mental Status: She is alert. Assessment and Plan ASSESSMENT/PLAN: 1. Acute right ankle pain - ICD9: 719.47, 338.19, ICD10: M25.571 (primary diagnosis) - XR ANKLE GENERAL 3V AP/LAT/OBL RIGHT -XR reveals small ankle joint effusion and soft tissue swelling. No acute fracture. -Melissa bandage applied. Recommend rest, ice, Tylenol/Motrin, elevation. -Follow-up with PCP in 1 week if symptoms do not improve. 2. Tachycardia - ICD9: 785.0, ICD10: R00.0 -Patient has history of SVT with ablation. She is tachycardic on exam- 150 on initial eval. Upon my exam, heart rate has improved to 120s. She states this is not abnormal for her, especially at the doctors office. Prior visit HR 134 and 160, appears to be tachycardic at baseline. -Recommend follow-up with electroplating sales representative. Asymptomatic at this time. Diagnosis and treatment plan were discussed and questions were answered to the patient's satisfaction. Pt acknowledged understanding of concepts and follow up plan. Specific signs and symptoms that would indicate the need for higher level of care were discussed in detail warranting prompt ER evaluation. MARYANN Paz documented in this encounter [facility] 09-10-2022 Note HNO ID: [id number] Author: Silvestre Singh, DO Service: ? Author Type: Physician Type: Progress Notes Filed: 09/10/2022 9:15 AM Note Text: Johan Lee is a 22 year old female who presents with Cough (Chest congestion and sore throat x5days - pt states she has white coat syndrome and he heart rate goes high when she is nervous) Cough, chest congestion, sinus congestion and sore throat, about a week. States has history of tachycardia, SVTs that were ablated years ago. Follow with cardiology, states no chest pain, shortness of breath, drug or smoking use. Cough Associated symptoms include ear pain and sore throat. Pertinent negatives include no chest pain, no chills and no shortness of breath. PAST MEDICAL HISTORY Diagnosis Date NEGATIVE MEDICAL HISTORY normal color vision Periods, menstrual, difficult 2014 Age 14 ACTIVE PROBLEM LIST Bilateral Ankle Pain Menorrhagia With Irregular Cycle Vaccine Reaction Svt (Supraventricular Tachycardia) (Hcc) Current Outpatient Medications Medication Sig Dispense Refill Azelastine HCl (OPTIVAR) 0.05 % ophthalmic solution Use 1 Drop in both eyes twice daily as needed (Eye pruritus). ONE DROP TO THE AFFECTED EYE EVERY 12 HOURS PRN PRURITIS 1 Bottle 4 Drospirenone-Ethinyl Estradiol (MISAEL, 28,) 3-0.02 mg per tablet Take continuous for 12 weeks 3 Package 2 No current facility-administered medications for this visit. Social History Tobacco Use Smoking status: Never Passive exposure: Never Smokeless tobacco: Never Substance Use Topics Alcohol use: Yes Comment: rare Drug use: No Alcohol Use: Yes (rare) Tobacco Use: Never FAMILY HISTORY Problem Relation Age of Onset Cancer Maternal Grandfather multiple myloma Hypertension Maternal Grandmother Thyroid Maternal Grandmother Stroke Paternal Grandmother age 72 Heart Attack Paternal Grandmother Occured in her early 60s Diabetes Paternal Grandfather type II Heart Attack Paternal Grandfather Occured in his 50s and was untreated. Heart Attack Maternal great-grandfather Occured in his 60s Review of Systems Constitutional: Negative for chills and fever. HENT: Positive for congestion, ear pain, sinus pain and sore throat. Respiratory: Positive for cough and sputum production. Negative for shortness of breath. Cardiovascular: Negative for chest pain, orthopnea, claudication and leg swelling. Gastrointestinal: Negative for abdominal pain, diarrhea, nausea and vomiting. Genitourinary: Negative for dysuria. BP 140/85 Pulse 134 Temp 98.4 Resp 18 Wt 125 lb (56.7kg) SpO2 98% LMP 07/29/2021 Physical Exam Constitutional: General: She is not in acute distress. Appearance: She is normal weight. She is not toxic-appearing. HENT: Head: Normocephalic and atraumatic. Right Ear: Ear canal and external ear normal. There is no impacted cerumen. Tympanic membrane is erythematous and bulging. Left Ear: Ear canal and external ear normal. There is no impacted cerumen. Tympanic membrane is erythematous and bulging. Nose: Congestion and rhinorrhea present. Mouth/Throat: Pharynx: Posterior oropharyngeal erythema present. Eyes: Conjunctiva/sclera: Conjunctivae normal. Pupils: Pupils are equal, round, and reactive to light. Cardiovascular: Rate and Rhythm: Normal rate and regular rhythm. Pulses: Normal pulses. Heart sounds: Normal heart sounds. No murmur heard. No friction rub. Pulmonary: Effort: Pulmonary effort is normal. No respiratory distress. Breath sounds: Normal breath sounds. No stridor. No wheezing. Neurological: Mental Status: She is alert. ASSESSMENT/PLAN: 1. Acute non-recurrent frontal sinusitis - ICD9: 461.1, ICD10: J01.10 (primary diagnosis) 2. Acute cough - ICD9: 786.2, ICD10: R05.1 3. Tachycardia - ICD9: 785.0, ICD10: R00.0 -Sinusitis and cough, chest congestion symptoms, at this point present for about a week - Lungs are clear, does have bilateral otitis but no signs of pneumonia-patient's heart rate is elevated greater than 100 but has history of whitecoat induced tachycardia. Follows with PCP, had normal heart rate and had ablation done years ago. Also sees electroplating sales representative - No active chest pain, shortness of breath or signs of severe cardiac abnormalities. Will give doxycycline to treat for sinus infection, ear infection given penicillin allergy - Monitor heart symptoms, warned patient to go to ER if tachycardia associated with chest pain or shortness of breath. Otherwise continue Tylenol Motrin, decongestions, avoid phenylephrine as this could increase heart rate. [facility] 09-10-2022 History of Present illness Narrative Johan Lee is a 22 year old female who presents with Cough (Chest congestion and sore throat x5days - pt states she has white coat syndrome and he heart rate goes high when she is nervous) Cough, chest congestion, sinus congestion and sore throat, about a week. States has history of tachycardia, SVTs that were ablated years ago. Follow with cardiology, states no chest pain, shortness of breath, drug or smoking use. Cough Associated symptoms include ear pain and sore throat. Pertinent negatives include no chest pain, no chills and no shortness of breath. PAST MEDICAL HISTORY Diagnosis Date NEGATIVE MEDICAL HISTORY normal color vision Periods, menstrual, difficult 2014 Age 14 ACTIVE PROBLEM LIST Bilateral Ankle Pain Menorrhagia With Irregular Cycle Vaccine Reaction Svt (Supraventricular Tachycardia) (Hcc) Current Outpatient Medications Medication Sig Dispense Refill Azelastine HCl (OPTIVAR) 0.05 % ophthalmic solution Use 1 Drop in both eyes twice daily as needed (Eye pruritus). ONE DROP TO THE AFFECTED EYE EVERY 12 HOURS PRN PRURITIS 1 Bottle 4 Drospirenone-Ethinyl Estradiol (MISAEL, Phill,) 3-0.02 mg per tablet Take continuous for 12 weeks 3 Package 2 No current facility-administered medications for this visit. Social History Tobacco Use Smoking status: Never Passive exposure: Never Smokeless tobacco: Never Substance Use Topics Alcohol use: Yes Comment: rare Drug use: No Alcohol Use: Yes (rare) Tobacco Use: Never FAMILY HISTORY Problem Relation Age of Onset Cancer Maternal Grandfather multiple myloma Hypertension Maternal Grandmother Thyroid Maternal Grandmother Stroke Paternal Grandmother age 72 Heart Attack Paternal Grandmother Occured in her early 60s Diabetes Paternal Grandfather type II Heart Attack Paternal Grandfather Occured in his 50s and was untreated. Heart Attack Maternal great-grandfather Occured in his 60s Review of Systems Constitutional: Negative for chills and fever. HENT: Positive for congestion, ear pain, sinus pain and sore throat. Respiratory: Positive for cough and sputum production. Negative for shortness of breath. Cardiovascular: Negative for chest pain, orthopnea, claudication and leg swelling. Gastrointestinal: Negative for abdominal pain, diarrhea, nausea and vomiting. Genitourinary: Negative for dysuria. BP 140/85 Pulse 134 Temp 98.4 Resp 18 Wt 125 lb (56.7kg) SpO2 98% LMP 07/29/2021 Physical Exam Constitutional: General: She is not in acute distress. Appearance: She is normal weight. She is not toxic-appearing. HENT: Head: Normocephalic and atraumatic. Right Ear: Ear canal and external ear normal. There is no impacted cerumen. Tympanic membrane is erythematous and bulging. Left Ear: Ear canal and external ear normal. There is no impacted cerumen. Tympanic membrane is erythematous and bulging. Nose: Congestion and rhinorrhea present. Mouth/Throat: Pharynx: Posterior oropharyngeal erythema present. Eyes: Conjunctiva/sclera: Conjunctivae normal. Pupils: Pupils are equal, round, and reactive to light. Cardiovascular: Rate and Rhythm: Normal rate and regular rhythm. Pulses: Normal pulses. Heart sounds: Normal heart sounds. No murmur heard. No friction rub. Pulmonary: Effort: Pulmonary effort is normal. No respiratory distress. Breath sounds: Normal breath sounds. No stridor. No wheezing. Neurological: Mental Status: She is alert. ASSESSMENT/PLAN: 1. Acute non-recurrent frontal sinusitis - ICD9: 461.1, ICD10: J01.10 (primary diagnosis) 2. Acute cough - ICD9: 786.2, ICD10: R05.1 3. Tachycardia - ICD9: 785.0, ICD10: R00.0 -Sinusitis and cough, chest congestion symptoms, at this point present for about a week - Lungs are clear, does have bilateral otitis but no signs of pneumonia-patient's heart rate is elevated greater than 100 but has history of whitecoat induced tachycardia. Follows with PCP, had normal heart rate and had ablation done years ago. Also sees electroplating sales representative - No active chest pain, shortness of breath or signs of severe cardiac abnormalities. Will give doxycycline to treat for sinus infection, ear infection given penicillin allergy - Monitor heart symptoms, warned patient to go to ER if tachycardia associated with chest pain or shortness of breath. Otherwise continue Tylenol Motrin, decongestions, avoid phenylephrine as this could increase heart rate. Silvestre Singh documented in this encounter [facility] 09-10-2022 Instructions Silvestre Singh DO - 09/10/2022 8:57 AM EDT Images from the original note were not included. Adult Sinusitis Patient Education What is Sinusitis? Sinusitis [[id number]] is inflammation of the sinuses or swelling of the lining of the sinus cavity or nose. During an infection the sinuses become blocked with fluid causing swelling of the lining of the sinuses. Symptoms: (viral and bacterial infections) Stuffy nose Runny nose Postnasal drip Fever Toothache Headache Tiredness Cough Sore throat Face and head pressure and or pain Common causes: 98% of sinus infections are viral caused by viruses. Risk Factors of Sinusitis Include: Allergies, air pollution, indoor humidity and outdoor temperature changes, andstructural changes in the nose may contribute to sinus pain, pressure and congestion. When to get help? Temperature greater than 100.4 F Symptoms lasting more than 10 days or worsening symptoms greater than 7-10 days. If you do not improve or worsen after a course of antibiotics, you should be re-examined. Diagnosis and Treatment: Your healthcare provider will ask a number of questions about your symptoms and how long they have occurred. If symptoms of sinusitis persist greater than 10 days, it is possible you have a bacterial sinus infection and an antibiotic is prescribed. If it is viral, antibiotics will not help. You may be instructed to take [id number] medications for symptoms. including fever reducers acetaminophen or ibuprofen, nasal saline spray, cough and cold preparations and decongestants as prescribed by the physician, nurse practitioner or physician child center assistant. Self-Care and Prevention: Rest Fluids for hydration Good hand washing Humidifier Avoid smoking and exposure to second hand smoke Avoid sick contacts documented in this encounter [facility] 07-10-2022 Instructions Saranya Crawley PA-C - 07/10/2022 8:01 AM EDT Images from the original note were not included. Urinary Problem-When to Seek Help? Symptoms of a urinary problem may lead to a bladder infection. Women are at greater risk of a urinary tract infection than are men. Most urinary tract infections in women are caused by bacteria and involve the lower urinary tract including the bladder and urethra. Symptoms: Pain or burning when passing urine, urgency, frequency, blood in the urine, difficult emptying your bladder, and lower abdominal fullness or pressure. Common Causes: Sexual intercourse, menopause, constipation, uncontrolled diabetes, dehydration and feminine products such as tampons, and kidney stones. When to Get Help: Seek medical attention if you get frequent bladder infections, urinary concerns such as leakage, blood in the urine or frequent need to urinate. You may be recommended to get help from a specialist, such as a urologist. Diagnosis & Treatment: Lab testing may include: urinalysis, and urine culture that can be collected in the lab or walk-in clinic. Most bladder infections can easily be treated. A physician, nurse practitioner or physician child center assistant may treat with a short course of an antibiotic. Delaying treatment can lead to worsening symptoms, like a kidney infection. Self-Care: Avoid a full bladder, bubble baths, bath oils, food and beverages that may irritate the bladder such as caffeine. Avoid spermicide foam and diaphragms Void before and after sexual intercourse Wipe front to back after using the bathroom. Stay hydrated Stop Smoking Follow-up Care: Follow up testing is not needed in healthy young women if symptoms resolve. documented in this encounter [facility] 07-10-2022 History of Present illness Narrative This note was created using [employer]. Subjective Johan Lee is a 22 year old female. Pt c/o dysuria, urinary frequency and feeling like she is unable to fully empty her bladder x 1 day. Denies hematuria, low back pain, abdominal pain, n/v, fever and chills. The history is provided by the patient. UTI The current episode started 12 to 24 hours ago. The problem occurs every urination. The problem has been gradually worsening. The quality of the pain is described as burning. There has been no fever. Associated symptoms include frequency and urgency. She has tried nothing for the symptoms. Review of Systems Constitutional: Negative. HENT: Negative. Respiratory: Negative. Cardiovascular: Negative. Gastrointestinal: Negative. Genitourinary: Positive for dysuria, frequency and urgency. Musculoskeletal: Negative. Objective BP 120/86 Pulse (!) 165 Temp 36.9 C (98.4 F) (Temporal) Wt 54.4 kg (120 lb) LMP 07/29/2021 SpO2 97% BMI 20.79 kg/m Physical Exam Vitals and nursing note reviewed. Constitutional: Appearance: Normal appearance. She is well-developed. HENT: Head: Normocephalic and atraumatic. Cardiovascular: Rate and Rhythm: Regular rhythm. Tachycardia present. Heart sounds: Normal heart sounds, S1 normal and S2 normal. Pulmonary: Effort: Pulmonary effort is normal. Breath sounds: Normal breath sounds and air entry. No decreased breath sounds, wheezing, rhonchi or rales. Abdominal: General: Abdomen is flat. Palpations: Abdomen is soft. Tenderness: There is no abdominal tenderness. There is no right CVA tenderness or left CVA tenderness. Skin: General: Skin is warm and dry. Neurological: General: No focal deficit present. Mental Status: She is alert and oriented to person, place, and time. Psychiatric: Behavior: Behavior is cooperative. ASSESSMENT/PLAN: 1. Dysuria - ICD9: 788.1, ICD10: R30.0 (primary diagnosis) acute - UA positive for alyssia esterase and hematuria - Send urine for culture - Begin treatment with Macrobid 100 mg BID for 7 days - Will reach out via Mychart if antibiotic needs to be changed based on culture results - Patient education for prevention given - URINE CULTURE - UA DIP, URINE (POC) - NITROFURANTOIN MONOHYDRATE & MACROCRYSTAL 100 MG ORAL CAP 2. Tachycardia - ICD9: 785.0, ICD10: R00.0 - Pt has a history of SVT s/p ablation - Pt states this always happens when she is in the doctors office - Pt not concerned at this time - Instructed patient to follow up with electroplating sales representative as needed Saranya Crawley PA-C documented in this encounter [facility] 06-18-2022 Miscellaneous Notes Get Medical Advice on 06/18/22 BLOOD TB SCREEN Maricel Gonzalez MD documented in this encounter [facility] 07-30-2021 Instructions Maricel Gonzalez MD - 07/30/2021 5:44 PM EDT Images from the original note were not included. Health habits to cultivate in your 20s: Monitor Your Weight You shouldn t get obsessive about it, but monitoring your weight by standing on the scales once a week/month will enable you to keep track of your weight, so that, if you notice that you re starting to gain a few pounds, you can immediately take steps to remedy the situation by cutting cut the junk and taking a little more exercise. Learn How to Cook Healthy Meals Since it s so much easier to gain weight in your 20s and beyond, it s the perfect time for you to learn how to cook delicious, nutritious meals, if this is something you struggle with at the moment. You don t have to take a course or create really complex dishes, just look up a few simple recipes that contain a good balance of all the food groups and learn how to do them well. If you re stuck for time, there are lots of healthy dishes that can be whipped up in as little as 15 minutes, and if you batch cook them, you ll always have something good to eat on hand. Take Up Regular Exercise Of course, a healthy diet alone won t protect you from illness and overweight, which is why you should start looking for fun forms of exercise that you can engage in on a regular basis. It doesn t matter whether it s yoga, running, weight training or dance find something you love and add it to your schedule at least four days a week. Make it a priority to stick to your exercise appointments, and you ll be amongst the healthiest people in your age group not only in your 20s but in your 30s, 40s and beyond. Minimize Your Sugar Intake Excess sugar is a contributing factor in so many conditions, including diabetes and obesity. It will also rot your teeth and give you bad skin when it is eaten to excess Now that you re no longer a kid do yourself a favour by cutting down on the amount of sugar you consume. You don t have to eliminate it completely, although you ll probably feel fantastic if you do, but at least switch to diet sodas and sweeteners most of the time. Practice Safe Sex Your 20s is usually the time when you experiment with sex and get to know that side of your personality. There s nothing wrong with that, and actually, a healthy sex life can be great for your physical and mental health, but you must practice safe sex if you want to avoid unwanted pregnancies and STDs. As well as practising safe sex, whenever you are with a new partner, you should seriously consider both getting tested so that you know where you stand Learn Relaxation Techniques Modern life is inherently stressful what with all of the work and family commitments we have, the increasing amount of traffic on the roads and the influx of bad news we re subjected to on a daily basis., which is why learning relaxation techniques now, when you re really just starting out in life will serve you well. There are numerous ways to relax from yoga and meditation to hiking in the [place] and it doesn t matter which you choose as long as you actually take the time to relax and unwind on a regular basis. Sleep More I know when you re young spending all night at the bar with friends is more appealing than getting a solid 8-9 hours of sleep each night, but sleep is so vital to your health that you really should make an effort to get more shut eye. Your body and brain will then have ample time to recover from the stresses of the day, you ll be better able to maintain a healthy weight, and you ll perform better at work. Wear Sunscreen When you re in your 20s, and your skin is still smooth and supple, it can be easy to neglect proper skin care practices, but if you want to avoid looking old before your time, and more importantly, if you want to avoid skin cancer, you really do need to start at least wearing a decent sunscreen daily. It might be a pain to apply it so often, but you will be pleased you did when you look younger and feel healthier than your peers 20 years down the line. Adolescent to Adult Transition Program [facility] cares about helping you and each of our adolescents and young adults make a smooth transition to adult care. If your current doctor is a ambulette driver, we will work with you to decide the correct age for moving your care to a doctor or other provider who takes care of adults. We suggest that this move take place before age 22. Our office policy is to prepare you to move to a doctor or other provider who takes care of adults. This includes helping you find a doctor or other provider, sending medical records, and talking about any special needs with the new doctor or other provider. If your current doctor is in family medicine, [facility] will prepare you and your family for the transition to being an adult patient. You will be able to make your own healthcare decisions and will have an adult care team that meets your personal healthcare needs. At age 18, by law, we need your agreement to discuss personal health information with your family. We understand and respect that you may want to include your family in healthcare choices and will partner with you on how and when to include your family in decisions. We will make sure you know what changes to expect. We will also strive to make sure that all care team providers know your needs. We will help you find community resources and specialty care, if needed. Having your information before you come for the first time helps us be sure we do not miss any details. If joining our practice from outside [facility], we will help you request your medical record from past doctor(s) before your first visit. We will make every effort to work with your past providers to ensure a smooth transition and experience. We are always here for you. If you have any questions or concerns, please contact your primary care team or e-mail Got Transition is the federally funded national resource center on health care transition (HCT). Its aim is to improve transition from pediatric to adult health care through the use of evidence-driven strategies for health healthcare analyst, youth, young adults, and their families. www.gottransition.org https://gottransition.[email or web address] [email or web address] documented in this encounter [facility] 07-30-2021 History of Present illness Narrative WELL VISIT PEDIATRIC FEMALE 18+ YRS OLD SERVICE DATE: 07/30/2021 Johan is a 21 year old female who presents today for well exam. SUBJECTIVE CONCERNS: no concerns HISTORY ACTIVE PROBLEM LIST Svt (Supraventricular Tachycardia) ([facility]) - 09/28/2019 Comment: AVNRT s/p catheter ablation with Dr. Prateek Baker on 11/03/2019. Vaccine Reaction - 10/22/2015 Comment: Developed nausea, lightheadedness, eye discomfort, chills/sweats within an hour of gardasil for first and second doses, reports Sx were worse with second dose. Menorrhagia With Irregular Cycle - 07/30/2015 Bilateral Ankle Pain - 07/05/2012 PAST MEDICAL HISTORY Diagnosis Date NEGATIVE MEDICAL HISTORY normal color vision Periods, menstrual, difficult 2014 Age 14 PAST SURGICAL HISTORY Procedure Laterality Date NONE ALLERGIES Allergen Reactions Gardasil 9 (Pf) [Hu* Intolerance Mother does not want any additional HPV vaccines Medications: Drospirenone-Ethinyl Estradiol (MISAEL, 28,) 3-0.02 mg per tablet Take continuous for 12 weeks Azelastine HCl (OPTIVAR) 0.05 % ophthalmic solution Use 1 Drop in both eyes twice daily as needed (Eye pruritus). ONE DROP TO THE AFFECTED EYE EVERY 12 HOURS PRN PRURITIS FAMILY HISTORY Problem Relation Age of Onset Cancer Maternal Grandfather multiple myloma Hypertension Maternal Grandmother Thyroid Maternal Grandmother Stroke Paternal Grandmother age 72 Heart Attack Paternal Grandmother Occured in her early 60s Diabetes Paternal Grandfather type II Heart Attack Paternal Grandfather Occured in his 50s and was untreated. Heart Attack Maternal great-grandfather Occured in his 60s Social History Social History Narrative Not on file Smoking Exposure: Do you spend a significant amount of time with anyone who smokes? No School: Graduate school ; grades A. Physical Activity more than 1 hour of physical activity per day Screen Time totaling less than 2 hours of screen time per day. Safety: Reviewed seat belts, bike helmets, internet, sunscreen and driving Diet: -Eats 3 meals per day and 2 snacks per day -Typical beverages include water -Fruits and vegetables are eaten with nearly every meal Elimination: no concerns, normal size and consistency Dental: dental care current Sleep: -no sleep concerns Gynecological history: LMP: 07/29/21 Cycles are regular and last 4 days. - has menstrual cycle every 4 months Dysmenorrhea: mild Heavy periods: no Substance use: none Sexual History: Attraction: male Sexually Active: Yes Number of lifetime partners: 2 Contraception: condoms every time and OCPs-no pills missed GC/C screen within the past year: Yes GC/C screen since most recent partner? No Change in normal vaginal discharge: No Body image: satisfactory Screening tools reviewed and discussed with patient/yioxgu-ODA-4. Please see Patient Entered Data. REVIEW OF SYSTEMS GENERAL: No fevers EYES: Wears corrective lenses and Vision screening completed by eye doctor ENT: No hearing concerns RESPIRATORY: Negative for cough, wheezing or respiratory distress CARDIOVASCULAR: Negative for chest pain, syncope, lightheadness or heart racing SKIN: Negative for lesions, rash, and itching ENDOCRINE: No growth concerns OBJECTIVE Physical Exam: BP 112/66 Pulse 82 Temp 36.7 C (98 F) (Temporal) Resp 14 Ht 161.8 cm (5' 3.7) Wt 55.6 kg (122 lb 9.6 oz) LMP 07/29/2021 BMI 21.24 kg/m Body mass index is 21.24 kg/m . Last BMI: Wt: 54.9 kg (121 lb) BMI: 20.91 kg/(m^2) Last 4 Encounter Wt Readings: Date: Wt: 12/09/2020 54.9 kg (121 lb) 11/01/2019 53.8 kg (118 lb 8 oz) 10/21/2019 53.8 kg (118 lb 9.7 oz) 09/28/2019 52.7 kg (116 lb 2.9 oz) Last 4 Encounter Ht Readings: Date: Ht: 11/01/2019 162 cm (5' 3.78) 09/28/2019 161 cm (5' 3.39) 09/26/2019 161.2 cm (5' 3.47) 02/08/2019 161.8 cm (5' 3.7) (41 %, Z= -0.24)* General: alert and active in no apparent distress Head: Normocephalic, atraumatic Eyes: PERRLA, EOM's intact Ears: External ears normal. Canals clear. Tympanic membranes are intact bilaterally without evidence of fluid in the middle ear space Nose/Sinuses: Nares normal. Septum midline. Mucosa normal. No drainage or sinus tenderness. Oropharynx: Tonsils are 1+. Uvula is midline and the oropharynx is symmetrical Neck: No masses and the suprasternal notch, no supraclavicular adenopathy, supple, no adenopathy Thyroid: no masses or nodules present Heart: Regular Rate and Rhythm without murmurs or clicks, femoral and radial pulses are normal.PMI normal Lungs: clear to auscultation. No wheezes or rales.Chest AP diameter normal. Abdomen: Abdomen is soft, nontender, without organomegaly or masses. Musculoskeletal: Extremities with FROM and no problems identified. Neurological: Muscle tone normal, Awake, alert and oriented x 3, Cranial nerves II-XII grossly intact, Normal age appropriate gait, muscle tone normal, muscle strength 5/5 in the upper and lower extremities bilaterally and symmetrically, rapid alternating movements are smooth in the hands without evidence of dysdiadochokinesia Skin: Normal skin exam without concerning lesions ASSESSMENT: 21 year old Well exam PLAN: 1) Plan per orders. Office Visit on 07/30/21 PPD (TB INTRADERMAL 16013) B/O TETANUS/DIPTHERIA BOOSTER (OVER 7), PF IM HEP B SURF AB QUANT HIV 1 2 COMBO(AG/AB),WITH REFLEX TO DIFFERENTIATION HEP C AB IA W/CONF SCRN 2) Hearing and Vision if done at the visit was discussed and reviewed with the patient and family. 3) Questionnaires, if administered at the office today, were reviewed with the patient and family. 4) Growth curves including BMI were reviewed with the patient. Education regarding BMI, its meaning utility and limitations were discussed in the office today. If the BMI was elevated, we discussed interventions. 5) Counseling: See patient instruction section 6) Follow up every 1 year for well exam and PRN. Depression Screening 07/29/2021 PHQ-2 Score 0 PHQ-9 Score 0 Depression screening tool completed and reviewed. Based on score and interview, patient is not at risk for depression. Screening tool discussed with patient, and I recommended no further intervention at this time. - Discussed diet and safety. - Dental care discussed. - ARDACOs handout given (See Patient Instructions). - Patient was counseled [id number] by myself (the billing provider) for the following immunizations and vaccine components, including side effects: Td. Patient consents for immunization and understands risks and benefits. A VIS sheet on each immunization was given to the patient. - Healthcare transition statement discussed.. - Follow up in one year for routine physical. SIGNATURE: Maricel Gonzalez MD PATIENT NAME: Johan Lee DATE: July 30, 2021 TIME: 10:50 AM documented in this encounter [facility] Evaluation note Diagnosis Encounter for general adult medical examination without abnormal findings- Primary Unspecified general medical examination Screening-pulmonary TB Screening examination for pulmonary tuberculosis Screening examination for infectious disease Screening examination for unspecified infectious disease Encounter for immunization Need for other specified prophylactic vaccination against single bacterial disease [facility] Diagnosis Encounter for PPD skin test reading- Primary Other follow-up examination [facility] Diagnosis Encounter for screening for respiratory tuberculosis- Primary Screening examination for pulmonary tuberculosis [facility] Diagnosis Encounter for PPD skin test reading- Primary Other follow-up examination [facility] Diagnosis Onset Date Resolution Status Encounter for routine gynecological examination noneactive [facility] Work Phone: Evaluation note* Diagnosis Screening-pulmonary TB- Primary Screening examination for pulmonary tuberculosis [facility] Diagnosis Dysuria- Primary Tachycardia Tachycardia, unspecified [facility] Diagnosis Acute non-recurrent frontal sinusitis- Primary Acute cough Tachycardia Tachycardia, unspecified [facility] Diagnosis Acute right ankle pain- Primary Tachycardia Tachycardia, unspecified [facility] Diagnosis Treatment not available- Primary Procedure not carried out for other reasons [facility] Diagnosis Acute right ankle pain [facility] Diagnosis Encounter to establish care- Primary Other reasons for seeking consultation Preventative health care Routine general medical examination at a health care facility Adult wellness visit Personal history of supraventricular tachycardia Personal history of other diseases of circulatory system Screening for cervical cancer Screening for malignant neoplasm of the cervix documented in this encounter [facility] for referral (narrative)* Diagnostic Procedure Only (Urgent) - Closed Specialty Diagnoses / Procedures Referred By Contac t Referred To Contact XR IMAGING Diagnoses Acute right ankle pain Procedures XR ANKLE GENERAL 3V AP/LAT/OBL RIGHT RADEX ANKLE COMPLETE MINIMUM 3 VIEWS [facility] [address] [place] [address] Xr Imaging Referral ID Status Reason Start Date Expiration Date V isits Requested Visits Authorized [id number] Closed Auto-Generate d Referral 10/01/2022 10/31/2023 1 1 [facility] for referral (narrative)* Diagnostic Procedure Only (Urgent) - Closed Specialty Diagnoses / Procedures Referred By Contac t Referred To Contact XR IMAGING Diagnoses Acute right ankle pain Procedures XR ANKLE GENERAL 3V AP/LAT/OBL RIGHT RADEX ANKLE COMPLETE MINIMUM 3 VIEWS [facility] [address] [place] [address] [place] [id number] Referral ID Status Reason Start Date Expiration Date V isits Requested Visits Authorized [id number] Closed Auto-Generate d Referral 10/01/2022 10/31/2023 1 1 [facility] for visit Narrative* Diagnostic Procedure Only (Urgent) - Closed Specialty Diagnoses / Procedures Referred By Contac t Referred To Contact XR IMAGING Diagnoses Acute right ankle pain Procedures XR ANKLE GENERAL 3V AP/LAT/OBL RIGHT RADEX ANKLE COMPLETE MINIMUM 3 VIEWS [facility] [address] [place] [address] [place] [id number] Referral ID Status Reason Start Date Expiration Date V isits Requested Visits Authorized [id number] Closed Auto-Generate d Referral 10/01/2022 10/31/[address] [facility] Summary Purpose Family History Relationship Condition Age at Onset Recorded Date/T silvina grandfather Malignant neoplasm Unknown Advance Directives Documents on File Type Date Recorded Patient Machin[employer] Advance Directive(s) 11/03/2019 5:47 AM Advance Directive(s) 10/24/2019 10:02 AM Advance Directive Response Recorded Date/ Time Living Will No September 24, 2019 5:16pm Power of Design Intern No September 23 0 5:16pm Medications Administered Section Administered Medications Medication Order MAR Action Action Date Dose Rate Site PPD (M[place]oux) Intradermal Given 07/30/2021 11:45 EDT 0.1 mL Right Lo wer Forearm Administered Medications Medication Order MAR Action Action Date Dose Rate Site PPD ([place]) Intradermal Given 08/13/2021 09:05 EDT 0.1 mL Right Lo wer Forearm Chief Complaint and Reason for Visit Chief 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 Reason for Visit Encounter for routin e gynecological examination Additional Source Comments INFORMATION SOURCE (unrecogn ized section and content) DATE CREATED AUTHOR 12/27/2020 [facility] [place] DATE CREATED AUTHOR AUTHOR'S ORGANIZ ATION 09/11/2022 [facility] DATE CREATED AUTHOR AUTHOR'S ORGANIZ ATION 04/08/2024 [facility] DATE CREATED AUTHOR AUTHOR'S ORGANIZ ATION 07/21/2024 [facility] Source Comments (unrecognize d section and content) In the event this informatio n is protected by the Federal Confidentiality of Alcohol and Drug Abuse Patient Records regulations: The Federal rules restrict any use of the information to criminally investigate or prosecute any alcohol or drug abuse patient.[facility] the event this information is protected by the Federal Confidentiality of Alcohol and Drug Abuse Patient Records regulations: The Federal rules restrict any use of the information to criminally investigate or prosecute any alcohol or drug abuse patient.[facility] the event this information is protected by the Federal Confidentiality of Alcohol and Drug Abuse Patient Records regulations: The Federal rules restrict any use of the information to criminally investigate or prosecute any alcohol or drug abuse patient.[facility] the event this information is protected by the Federal Confidentiality of Alcohol and Drug Abuse Patient Records regulations: The Federal rules restrict any use of the information to criminally investigate or prosecute any alcohol or drug abuse patient.[facility] the event this information is protected by the Federal Confidentiality of Alcohol and Drug Abuse Patient Records regulations: The Federal rules restrict any use of the information to criminally investigate or prosecute any alcohol or drug abuse patient.[facility] the event this information is protected by the Federal Confidentiality of Alcohol and Drug Abuse Patient Records regulations: The Federal rules restrict any use of the information to criminally investigate or prosecute any alcohol or drug abuse patient.[facility] the event this information is protected by the Federal Confidentiality of Alcohol and Drug Abuse Patient Records regulations: The Federal rules restrict any use of the information to criminally investigate or prosecute any alcohol or drug abuse patient.[facility] the event this information is protected by the Federal Confidentiality of Alcohol and Drug Abuse Patient Records regulations: The Federal rules restrict any use of the information to criminally investigate or prosecute any alcohol or drug abuse patient.[facility] the event this information is protected by the Federal Confidentiality of Alcohol and Drug Abuse Patient Records regulations: The Federal rules restrict any use of the information to criminally investigate or prosecute any alcohol or drug abuse patient.[facility] the event this information is protected by the Federal Confidentiality of Alcohol and Drug Abuse Patient Records regulations: The Federal rules restrict any use of the information to criminally investigate or prosecute any alcohol or drug abuse patient.[facility] the event this information is protected by the Federal Confidentiality of Alcohol and Drug Abuse Patient Records regulations: The Federal rules restrict any use of the information to criminally investigate or prosecute any alcohol or drug abuse patient.[facility] the event this information is protected by the Federal Confidentiality of Alcohol and Drug Abuse Patient Records regulations: The Federal rules restrict any use of the information to criminally investigate or prosecute any alcohol or drug abuse patient.[facility] the event this information is protected by the Federal Confidentiality of Alcohol and Drug Abuse Patient Records regulations: The Federal rules restrict any use of the information to criminally investigate or prosecute any alcohol or drug abuse patient.[facility] Reason for Visit (unrecogniz ed section and content) Reason Comments Well Child 21 year Reason Comments PPD Screening Or Test Reason Comments PPD Read Reason Comments UTI Today burning and so me frequency Reason Comments Cough Chest congestion and sore throat x5days - pt states she has white coat syndrome and he heart rate goes high when she is nervous Reason Comments right ankle pain Rolled ankle yesterd ay while walking Reason Comments Sinus Problem Sore Throat Ear Problem Reason Comments Establish Care Specialty Diagnoses / Procedures Referred By Sukumar t Referred To Contact Internal Medicine / INTERNAL MEDICINE Diagnoses Supraventricular tachycardia, unspecified Establish care Procedures OFFICE/OUTPATIENT NEW MODERATE MDM 45 MINUTES 4C [place] [address] [place] [address] Phone: tel: fax: Referral ID Status Reason Start Date Expiration Date V isits Requested Visits Authorized [id number] Authorized 06/22/2024 03/15/2025 2 2 Care Teams (unrecognized sec tion and content) Voice Over Artist Relationship Specialty [place] [address] [place] [id number] PCP - General 06/19/05 Voice Over Artist Relationship Specialty [place] [address] [place] [address] PCP - General 06/19/05 Voice Over Artist Relationship Specialty Start Date End Date Maricel Gonzalez MD [address] [place] [address] PCP - General 06/19/05 Voice Over Artist Relationship Specialty Start Date End Date Maricel Gonzalez MD [address] [place] [address] PCP - General 06/19/05 Voice Over Artist Relationship Specialty Start Date End Date Maricel Gonzalez MD [address] [place] [address] [id number] PCP - General 06/19/05 Voice Over Artist Relationship Specialty Start Date End Date Maricel Gonzalez MD [address] [place] [id number] PCP - General 06/19/05 Voice Over Artist Relationship Specialty Start Date End Date Maricel Gonzalez MD [address] [place], [place] [id number] PCP - General 06/19/05 Voice Over Artist Relationship Specialty Start Date End Date Maricel Gonzalez MD [address] [place], [place] 590271 PCP - General 06/19/05 Voice Over Artist Relationship Specialty Start Date End Date Maricel Gonzalez MD [address] [place], [place] 032[address] PCP - General 06/19/05 Voice Over Artist Relationship Specialty Start Date End Date Maricel Gonzalez MD [address] [place] [address] PCP - General 06/19/05 07/06/23 Voice Over Artist Relationship Specialty [place] [address] [place] [address] PCP - General Internal Medicine 06/22/24 Breanne Elizabeth, PACKAGING SPECIALIST.GUEST SERVICES OFFICER [address] [place] [address] Internal Medicine 06/22/24 Voice Over Artist Relationship Specialty [place] [address] [place] [address] PCP - General Internal Medicine 06/22/24 Breanne Elizabeth, PACKAGING SPECIALIST.GUEST SERVICES OFFICER [address] [place] [address] Internal Medicine 06/22/24 Breanne Elizabeth, PACKAGING SPECIALIST.GUEST SERVICES OFFICER [address] [place] [address] Wastewater Plant Operator Internal Medicine 07/28/24 Goals (unrecognized section and content) Goals may be documented in a n alternate section FOR RECORDS PERTAINING TO PATIENTS WHO ARE OR HAVE BEEN ENROLLED IN A CHEMICAL DEPENDENCY/SUBSTANCEABUSE PROGRAM, SOME INFORMATION MAY BE OMITTED. This clinical summary was aggregated from multiple sources. Caution should be exercised in using it in the provision of clinical care. This summary normalizes information from multiple sources, and as a consequence, information in this document may materially change the coding, format and clinical context of patient data. In addition, data may be omitted in some cases. CLINICAL DECISIONS SHOULD BE BASED ON THE PRIMARY CLINICAL RECORDS. [employer] [facility]. provides no warranty or guarantee of the accuracy or completeness of information in this document.
[2025-03-08 13:01] LABS: Anion Gap 11 (7-18); BUN 17 mg/dL (4-19); BUN/Creat Ratio 21.0 RATIO (10-20); Calcium,Total 9.8 mg/dL (7.6-11.0); Carbon Dioxide 24.6 mmol/L (20.0-29.0); Chloride 107 mmol/L (96-106); Glucose 84 mg/dL (70-99); Potassium 4.0 mmol/L (3.5-5.1)
== END | disposition home or self-care (01) ==
PROVIDERS: PCP Pediatrics; Visit Provider Obstetrics & Gynecology
DX: N92.0 Excessive and frequent menstruation with regular cycle (principal)
CPT/HCPCS: 36415; 80048